=== PATIENT | female | born 1950 | race Two or more races ===

== ENCOUNTER 2017-07-30 00:56 | Emergency (ER) | payer OTHER ==
[~2017-07-30] VITALS: Ht 152.4 cm; Wt 54.4 kg
[~2017-07-30 00:56] MED LIST: CLOP75TA28 PO; IBU800T PO; LISI10TA6 PO
[2017-07-30] MEDS ORDERED: SODIUM CHLORIDE 0.9% 1,000 ML IVB ONE (01:04)
[2017-07-30] MEDS ORDERED: HYDROmorphone HCL 2 MG/ML VL IV ONE (01:15)
[2017-07-30] MEDS ORDERED: PROMETHAZINE HCL 25 MG/ML 1ML IV PRN (01:15)
[2017-07-30 01:49] LABS: Basophils # (auto) 0.1 uL; Basophils % (auto) 0.5 % (0.0-2.0); Eosinophils # (auto) 0.2 uL; Eosinophils % (auto) 1.8 % (0.0-7.0); Hemoglobin 11.7 g/dL (12.2-16.2); Lymphocytes # (auto) 1.5 uL; Lymphocytes % (auto) 12.9 % (10.0-50.0); Mean Corpuscular Hemoglobin 29.1 pg (28.0-32.0); Mean Corpuscular Hgb Conc. 32.5 g/dL (32.0-36.0); Mean Corpuscular Volume 89.5 fL (80.0-100.0); Monocytes # (auto) 0.5 uL; Monocytes % (auto) 4.3 % (0.0-12.0); Neutrophils # (auto) 9.7 uL; Neutrophils % (auto) 80.5 % (37.0-80.0); Platelet Count (auto) 376 10^3/uL (140-450); Red Blood Cells 4.03 10^6/uL (4.0-5.20); Red Cell Distribution Width 14.8 % (11.8-14.3)
[2017-07-30 02:03] LABS: INR 1.04 (0.9-1.15); Partial Thromboplastin Time 23.3 sec (22.64-33.71); Prothrombin Time 11.3 sec (9.37-12.3)
[2017-07-30 02:13] LABS: Albumin 3.7 g/dL (3.4-5.0); Bilirubin, Total 0.2 mg/dL (0.2-1.0); Calcium 8.4 mg/dL (8.5-10.1); Magnesium 2.2 mg/dL (1.6-2.6); Potassium 3.4 mmol/L (3.5-5.1); Total Protein 6.8 g/dL (6.4-8.2)
[2017-07-30] MEDS ORDERED: SODIUM CHLORIDE 0.9% 1,000 ML IV ONE (02:30)
[2017-07-30 04:00] VITALS: BP 123/78
== END 2017-07-30 04:00 | disposition home or self-care (01) ==
LOC: EDBD 00:56 → ER 01:08
DX: K52.9 Noninfective gastroenteritis and colitis, unspecified (principal); D72.829 Elevated white blood cell count, unspecified; I25.10 Atherosclerotic heart disease of native coronary artery without angina pectoris; I10 Essential (primary) hypertension; Z87.891 Personal history of nicotine dependence
CPT/HCPCS: 36415; 74176; 80053; 83690; 83735; 85025; 85610; 85730; 94761; 96361; 96374; 96375; 99285; J1170; J2550

== ENCOUNTER 2021-04-27 11:11 | Emergency (ER) | payer BC, OTHER ==
[~2021-04-27] VITALS: Ht 149.9 cm; Wt 54.4 kg
[~2021-04-27 11:11] MED LIST changes: +LISI-716 PO; -LISI10TA6 PO
[2021-04-27 11:12] VITALS: BP 141/62
[2021-04-27 12:01] LABS: INR 1.11 (0.9-1.15)
[2021-04-27 12:05] LABS: Eosinophils # (auto) 0.1 10 ^3/uL (0-0.8); Hematocrit 24.7 % (36.0-46.0); Monocytes # (auto) 0.7 10 ^3/uL (0-1.3); Nucleated Red Blood Cells % 0.1 %
[2021-04-27 12:07] LABS: Basophils # (auto) 0 10 ^3/uL (0-0.2); Basophils % (auto) 0.7 % (0.0-2.0); Eosinophils % (auto) 1.9 % (0.0-7.0); Hemoglobin 7.8 g/dL (12.2-16.2); Lymphocytes % (auto) 28.9 % (10.0-50.0); Mean Corpuscular Hemoglobin 23.9 pg (28.0-32.0); Mean Corpuscular Hgb Conc. 31.6 g/dL (32.0-36.0); Mean Corpuscular Volume 75.5 fL (80.0-100.0); Neutrophils % (auto) 58.5 % (37.0-80.0); Red Blood Cells 3.27 10^6/uL (4.0-5.20); White Blood Cell 6.8 10^3/uL (4.4-10.8)
[2021-04-27 12:10] LABS: Calcium 8.9 mg/dL (8.5-10.1); Chloride 109 mmol/L (98-107); Potassium 4.1 mmol/L (3.5-5.1); Sodium 139 mmol/L (136-145)
[2021-04-27 12:11] LABS: Red Cell Distribution Width 20.3 % (11.8-14.3)
[2021-04-27 12:18] LABS: Alanine Aminotransferase 13 U/L (13-56); Albumin 3.5 g/dL (3.4-5.0); Alkaline Phosphatase 67 U/L (45-117); Anion Gap 4 (5-15); Aspartate Aminotransferase 9 U/L (15-37); BUN/Creatinine Ratio 37.1; Bilirubin, Total 0.2 mg/dL (0.2-1.0); Blood Urea Nitrogen 26 mg/dL (7-18); Carbon Dioxide 26 mmol/L (21-32); GFR African American 107 mL/min; GFR Non-African American 88 mL/min; Glucose 88 mg/dL (74-106); Total Protein 7.1 g/dL (6.4-8.2)
[2021-04-27] MEDS ORDERED: FERROUS SULFATE 325mg EC TAB PO ONE (14:00)
[2021-04-27 14:47] LABS: Urine Bacteria NONE SEEN /hpf (None Seen); Urine Blood Negative /uL (Negative); Urine Specific Gravity 1.011 (1.001-1.035); Urine WBC 2 /hpf (0 - 5)
== END 2021-04-27 14:42 | disposition home or self-care (01) ==
LOC: ER 11:11
DX: D64.9 Anemia, unspecified (principal); R42 Dizziness and giddiness; I25.10 Atherosclerotic heart disease of native coronary artery without angina pectoris; I10 Essential (primary) hypertension; Z88.5 Allergy status to narcotic agent; Z79.899 Other long term (current) drug therapy; Z90.89 Acquired absence of other organs; Z90.710 Acquired absence of both cervix and uterus; Z90.49 Acquired absence of other specified parts of digestive tract; Z87.891 Personal history of nicotine dependence; Z89.612 Acquired absence of left leg above knee
CPT/HCPCS: 36415; 71045; 80053; 81001; 84484; 85025; 85610; 85730; 93005

== ENCOUNTER 2022-12-14 22:59 | Inpatient (IN) | payer BC ==
[~2022-12-14] VITALS: Ht 149.9 cm; Wt 59.8 kg
[~2022-12-14 22:59] MED LIST changes: -LISI-716 PO; +LISI10TA34 PO
[2022-12-14] MEDS ORDERED: IOHEXOL 350 MG/ML 100ML IJ ONE (23:39)
[2022-12-14 23:59] LABS: Basophils # (auto) 0.1 10 ^3/uL (0-0.2); Eosinophils # (auto) 0.1 10 ^3/uL (0-0.8); Eosinophils % (auto) 1.8 % (0.0-7.0); Lymphocytes # (auto) 2.1 10 ^3/uL (0.4-5.4); Monocytes # (auto) 0.6 10 ^3/uL (0-1.3)
[2022-12-15] LABS: Basophils % (auto) 1.3 % (0.0-2.0); Hematocrit 26.7 % (36.0-46.0); Hemoglobin 8.6 g/dL (12.2-16.2); Lymphocytes % (auto) 26.6 % (10.0-50.0); Mean Corpuscular Hemoglobin 25.1 pg (28.0-32.0); Mean Corpuscular Hgb Conc. 32.3 g/dL (32.0-36.0); Mean Corpuscular Volume 77.8 fL (80.0-100.0); Monocytes % (auto) 7.9 % (0.0-12.0); Neutrophils % (auto) 62.4 % (37.0-80.0); Nucleated Red Blood Cells % 0.1 %; Red Blood Cells 3.42 10^6/uL (4.0-5.20); Red Cell Distribution Width 18.5 % (11.8-14.3); White Blood Cell 7.9 10^3/uL (4.4-10.8)
[2022-12-15 00:08] LABS: INR 1.04 (0.9-1.15); Partial Thromboplastin Time 28.5 sec (24.6-33.4)
[2022-12-15 00:43] LABS: Albumin 3.5 g/dL (3.4-5.0); BUN/Creatinine Ratio 20.9 (10.0-20.0); Calcium 8.7 mg/dL (8.5-10.1); Potassium 4.2 mmol/L (3.5-5.1)
[2022-12-15 00:46] LABS: Bilirubin, Total 0.2 mg/dL (0.2-1.0); Total Protein 7.8 g/dL (6.4-8.2)
[2022-12-15] MEDS ORDERED: ACETAMINOPHEN 325 MG TAB PO ONE (04:15)
[2022-12-15] MEDS ORDERED: hydrALAZINE HCL 20 MG/ML VL IV PRN (04:30)
[2022-12-15] MEDS ORDERED: DOCUSATE SOD 100 MG CAP PO PRN (04:30)
[2022-12-15] MEDS ORDERED: DEXTROSE (50%) 50ML SYRG IV PRN (04:30)
[2022-12-15] MEDS ORDERED: ONDANSETRON HCL 4 MG/2 ML VIAL IV PRN (04:30)
[2022-12-15] MEDS ORDERED: ACETAMINOPHEN 325 MG TAB PO PRN (04:30)
[2022-12-15 05:32] LABS: Basophils # (auto) 0.1 10 ^3/uL (0-0.2); Eosinophils # (auto) 0.1 10 ^3/uL (0-0.8); Hematocrit 25.8 % (36.0-46.0); Hemoglobin 8.4 g/dL (12.2-16.2); Mean Corpuscular Hemoglobin 24.9 pg (28.0-32.0); Mean Corpuscular Hgb Conc. 32.4 g/dL (32.0-36.0); Mean Corpuscular Volume 76.8 fL (80.0-100.0); Monocytes # (auto) 0.5 10 ^3/uL (0-1.3); Red Cell Distribution Width 18.5 % (11.8-14.3)
[2022-12-15 05:34] LABS: Calcium 8.2 mg/dL (8.5-10.1)
[2022-12-15 05:39] LABS: Basophils % (auto) 1.2 % (0.0-2.0); Eosinophils % (auto) 1.9 % (0.0-7.0); Lymphocytes # (auto) 1.9 10 ^3/uL (0.4-5.4); Lymphocytes % (auto) 26.9 % (10.0-50.0); Monocytes % (auto) 7.7 % (0.0-12.0); Neutrophils # (auto) 4.3 10 ^3/uL (1.6-8.6); Neutrophils % (auto) 62.3 % (37.0-80.0); Red Blood Cells 3.35 10^6/uL (4.0-5.20); White Blood Cell 6.9 10^3/uL (4.4-10.8)
[2022-12-15 05:40] LABS: Albumin 3.6 g/dL (3.4-5.0); BUN/Creatinine Ratio 16.3 (10.0-20.0); Bilirubin, Total 0.3 mg/dL (0.2-1.0); Total Protein 7.4 g/dL (6.4-8.2)
[2022-12-15] MEDS ORDERED: SODIUM CHLORIDE 0.9% 1,000 ML IV ONE ×2 (06:15→07:30)
[2022-12-15] MEDS ORDERED: NITROGLYCERIN 0.4 MG SL TAB SL PRN (06:30)
[2022-12-15] MEDS: InsuLIN REG 1unit/0.01ml Soln (100units/ml) SC SCH ×4 (07:00→22:00)
[2022-12-15] MEDS: ACCU-CHEK COMFORT CURVE STRIP VI SCH ×4 (07:22→22:00)
[2022-12-15] MEDS: SODIUM CHLORIDE 0.9% 1,000 ML IV SCH ×2 (07:35→21:10)
[2022-12-15] MEDS: FAMOTIDINE (10MG/ML) 2ML VL IV SCH ×2 (10:51→22:00)
[2022-12-15] MEDS: CLOPIDOGREL BISULFATE 75 MG TAB PO SCH (10:51)
[2022-12-15 11:56] LABS: Urine Bacteria NONE SEEN /hpf (None Seen); Urine Blood Negative /uL (Negative); Urine WBC 2 /hpf (0 - 5)
[2022-12-15] MEDS ORDERED: HYDROcodone-ACET 5/325MG TAB PO ONE (23:15)
[2022-12-15 23:45] VITALS: BP 145/65
[2022-12-16] MEDS ORDERED: ATOR40TA52 PO (00:32)
[2022-12-16] MEDS ORDERED: ASPI-628 PO (00:32)
[2022-12-16] MEDS ORDERED: HYDR-4069 PO (00:32)
[2022-12-16] MEDS ORDERED: METF-370 PO (00:32)
[2022-12-16] MEDS ORDERED: METO25TA93 PO (00:32)
[2022-12-16] MEDS ORDERED: CLOP75TA70 PO (00:32)
[2022-12-16] MEDS ORDERED: PREG300C49 PO (00:32)
[2022-12-16 05:00] VITALS: BP 126/59
[2022-12-16] MEDS: InsuLIN REG 1unit/0.01ml Soln (100units/ml) SC SCH ×3 (06:06→16:48)
[2022-12-16] MEDS: ACCU-CHEK COMFORT CURVE STRIP VI SCH ×3 (06:06→16:48)
[2022-12-16 06:12] LABS: Basophils # (auto) 0.1 10 ^3/uL (0-0.2); Basophils % (auto) 1.5 % (0.0-2.0); Eosinophils # (auto) 0.2 10 ^3/uL (0-0.8); Eosinophils % (auto) 2.4 % (0.0-7.0); Hematocrit 24.5 % (36.0-46.0); Hemoglobin 7.9 g/dL (12.2-16.2); Lymphocytes # (auto) 1.5 10 ^3/uL (0.4-5.4); Lymphocytes % (auto) 22.2 % (10.0-50.0); Mean Corpuscular Hemoglobin 24.9 pg (28.0-32.0); Mean Corpuscular Hgb Conc. 32.1 g/dL (32.0-36.0); Mean Corpuscular Volume 77.7 fL (80.0-100.0); Monocytes # (auto) 0.6 10 ^3/uL (0-1.3); Monocytes % (auto) 8.8 % (0.0-12.0); Neutrophils # (auto) 4.3 10 ^3/uL (1.6-8.6); Neutrophils % (auto) 65.1 % (37.0-80.0); Nucleated Red Blood Cells % 0.1 %; Red Blood Cells 3.15 10^6/uL (4.0-5.20); Red Cell Distribution Width 18.4 % (11.8-14.3); White Blood Cell 6.6 10^3/uL (4.4-10.8)
[2022-12-16 06:29] LABS: Albumin 3.4 g/dL (3.4-5.0); BUN/Creatinine Ratio 16.2 (10.0-20.0); Bilirubin, Total 0.2 mg/dL (0.2-1.0); Total Protein 7.1 g/dL (6.4-8.2)
[2022-12-16 08:00] VITALS: BP 119/98
[2022-12-16 08:10] VITALS: BP 119/98
[2022-12-16] MEDS ORDERED: HYDROcodone-ACET 5/325MG TAB PO PRN (09:00)
[2022-12-16] MEDS: CLOPIDOGREL BISULFATE 75 MG TAB PO SCH (09:43)
[2022-12-16] MEDS: FAMOTIDINE (10MG/ML) 2ML VL IV SCH (09:43)
[2022-12-16 12:10] VITALS: BP 156/82
[2022-12-16] MEDS: SODIUM CHLORIDE 0.9% 1,000 ML IV SCH (13:41)
[2022-12-16] MEDS ORDERED: PREGABALIN CAPSULE 75 MG CAP PO SCH (14:00)
[2022-12-16 16:05] VITALS: BP 145/85
== END 2022-12-16 20:55 | disposition home health service (06) | DRG 69 ==
LOC: ER 22:59 → TELE 12-15 06:27 → TELE-WESTW 12-15 22:16
PROVIDERS: ADMIT Nurse Practitioner Family; ATTEND Internal Medicine
DX: G45.9 Transient cerebral ischemic attack, unspecified (principal); E87.1 Hypo-osmolality and hyponatremia; D64.9 Anemia, unspecified; I10 Essential (primary) hypertension; I25.10 Atherosclerotic heart disease of native coronary artery without angina pectoris; E78.00 Pure hypercholesterolemia, unspecified; I73.9 Peripheral vascular disease, unspecified; E11.40 Type 2 diabetes mellitus with diabetic neuropathy, unspecified; Z86.73 Personal history of transient ischemic attack (TIA), and cerebral infarction without residual deficits; Z89.612 Acquired absence of left leg above knee; Z87.891 Personal history of nicotine dependence; Z90.710 Acquired absence of both cervix and uterus; Z88.5 Allergy status to narcotic agent
CPT/HCPCS: 36415; 70551; 80053; 81001; 82962; 84484; 85025; 85610; 85730; 86850; 86900; 86901; 93005; 93306; G0378; J3490

== ENCOUNTER 2022-12-20 12:17 | Observation (INO) | payer BC ==
[~2022-12-20] VITALS: Ht 152.4 cm; Wt 56.8 kg
[~2022-12-20 12:17] MED LIST changes: +ASPI-628 PO; +ATOR40TA52 PO; +CLOP75TA70 PO; +HYDR-4069 PO; +METF-370 PO; +METO25TA93 PO; +PREG300C49 PO
[2022-12-20 13:52] LABS: Basophils # (auto) 0.1 10 ^3/uL (0-0.2); Eosinophils # (auto) 0.1 10 ^3/uL (0-0.8); Hematocrit 24.2 % (36.0-46.0); Hemoglobin 7.6 g/dL (12.2-16.2); Lymphocytes # (auto) 1.9 10 ^3/uL (0.4-5.4); Mean Corpuscular Hemoglobin 24.5 pg (28.0-32.0); Monocytes # (auto) 0.6 10 ^3/uL (0-1.3); White Blood Cell 5.4 10^3/uL (4.4-10.8)
[2022-12-20 13:54] LABS: Basophils % (auto) 1.5 % (0.0-2.0); Eosinophils % (auto) 2.1 % (0.0-7.0); Lymphocytes % (auto) 35.6 % (10.0-50.0); Mean Corpuscular Hgb Conc. 31.6 g/dL (32.0-36.0); Mean Corpuscular Volume 77.5 fL (80.0-100.0); Monocytes % (auto) 10.5 % (0.0-12.0); Neutrophils # (auto) 2.7 10 ^3/uL (1.6-8.6); Neutrophils % (auto) 50.3 % (37.0-80.0); Nucleated Red Blood Cells % 0.1 %; Red Blood Cells 3.12 10^6/uL (4.0-5.20); Red Cell Distribution Width 18.7 % (11.8-14.3)
[2022-12-20 14:10] LABS: INR 1.05 (0.9-1.15); Partial Thromboplastin Time 27.1 sec (24.6-33.4)
[2022-12-20 14:25] LABS: Albumin 3.5 g/dL (3.4-5.0); Calcium 8.3 mg/dL (8.5-10.1); Magnesium 2.7 mg/dL (1.6-2.6); Potassium 4.5 mmol/L (3.5-5.1)
[2022-12-20 14:29] LABS: BUN/Creatinine Ratio 17.6 (10.0-20.0); Bilirubin, Total 0.2 mg/dL (0.2-1.0); Total Protein 6.6 g/dL (6.4-8.2)
[2022-12-20] MEDS ORDERED: HYDROcodone-ACET 5/325MG TAB PO PRN (15:30)
[2022-12-20] MEDS ORDERED: ONDANSETRON HCL 4 MG/2 ML VIAL IV PRN (15:30)
[2022-12-20] MEDS ORDERED: ACETAMINOPHEN 325 MG TAB PO PRN (15:30)
[2022-12-20] MEDS ORDERED: NITROGLYCERIN 0.4 MG SL TAB SL PRN (15:30)
[2022-12-20] MEDS ORDERED: MORPHINE SULFATE INJ 2 MG/ml SYRG IV PRN ×2 (15:30)
[2022-12-20 16:03] LABS: % Iron Saturation 3.9 % (15-50)
[2022-12-20 16:56] LABS: Urine WBC None Seen /hpf (0 - 5)
[2022-12-20 17:24] LABS: Urine Bacteria NONE SEEN /hpf (None Seen); Urine Blood Negative /uL (Negative); Urine Specific Gravity 1.006 (1.001-1.035)
[2022-12-21] VITALS (17 sets, daily range): BP systolic 118–154; BP diastolic 53–79
[2022-12-21 12:48] LABS: Basophils # (auto) 0.1 10 ^3/uL (0-0.2); Basophils % (auto) 1.2 % (0.0-2.0); Eosinophils # (auto) 0.1 10 ^3/uL (0-0.8); Eosinophils % (auto) 2.4 % (0.0-7.0); Hemoglobin 11.8 g/dL (12.2-16.2); Lymphocytes # (auto) 1.8 10 ^3/uL (0.4-5.4); Lymphocytes % (auto) 32.3 % (10.0-50.0); Mean Corpuscular Hemoglobin 27.2 pg (28.0-32.0); Mean Corpuscular Hgb Conc. 32.7 g/dL (32.0-36.0); Mean Corpuscular Volume 83.1 fL (80.0-100.0); Monocytes # (auto) 0.5 10 ^3/uL (0-1.3); Monocytes % (auto) 9.9 % (0.0-12.0); Neutrophils % (auto) 54.2 % (37.0-80.0); Nucleated Red Blood Cells % 0.8 %; Red Blood Cells 4.33 10^6/uL (4.0-5.20); Red Cell Distribution Width 20.1 % (11.8-14.3); White Blood Cell 5.5 10^3/uL (4.4-10.8)
== END 2022-12-21 17:00 | disposition home or self-care (01) ==
LOC: ER 12:17 → TELE 15:25 → TELE-EAST 12-21 01:31
PROVIDERS: ADMIT Internal Medicine; ATTEND Internal Medicine
DX: D64.9 Anemia, unspecified (principal); R53.1 Weakness; R53.83 Other fatigue; I10 Essential (primary) hypertension; I25.10 Atherosclerotic heart disease of native coronary artery without angina pectoris; E11.9 Type 2 diabetes mellitus without complications; G62.9 Polyneuropathy, unspecified; G45.9 Transient cerebral ischemic attack, unspecified; D84.9 Immunodeficiency, unspecified; E78.5 Hyperlipidemia, unspecified; Z86.73 Personal history of transient ischemic attack (TIA), and cerebral infarction without residual deficits; Z87.891 Personal history of nicotine dependence; Z90.710 Acquired absence of both cervix and uterus; Z79.899 Other long term (current) drug therapy; Z98.890 Other specified postprocedural states; Z90.49 Acquired absence of other specified parts of digestive tract
CPT/HCPCS: 36415; 36430; 70450; 71045; 80053; 81001; 82962; 83540; 83550; 83735; 83880; 84484; 85025; 85045; 85610; 85730; 86850; 86900; 86901; 86920; 93005; 96374; 99285; G0378; J2405; P9016

== ENCOUNTER 2024-09-21 12:38 | Inpatient (IN) | payer BC, MEDICAID ==
[~2024-09-21] VITALS: Ht 149.9 cm; Wt 60.4 kg
[~2024-09-21 12:38] MED LIST changes: -IBU800T PO; -PREG300C49 PO; +[UNRECOGNIZED DRUG - CODE] PO
--- NOTE | 2024-09-21 13:13 | ED.PDOC ---
GI ASSESSMENT HPI Comments 73 year old female accompanied by presents to the ED with chief complaint of abdominal pain. Patient reports that she has been experiencing 10/10 diffuse abdominal pain with associated radiation of pain to her back, dysuria, nausea, and vomiting for the past week. Patient denies any diarrhea, hematemesis, melena, rectal bleeding, fever, chills, hematuria, or dizziness. Time Seen by MD: 13:07 Primary Care Provider: ROD Garcia Notes: Nurses Notes, Medications, Allergies Allergies: Uncoded Allergies: ANESTHESIA (Allergy, Mild, 05/14/11) Home Meds Reported Medications Atorvastatin Calcium (ATORVASTATIN CALCIUM) 40 Mg Tab, 1 TAB PO DAILY 12/16/22 Metformin Hydrochloride (Metformin Hcl) 500 Mg Tab, 1 TAB PO BID 12/16/22 Hydrocodone-Acetaminophen (Hydrocodone/Acetaminophen 7.5-325 mg) 1 Tab Tab, 1 TAB PO QID PRN for PAIN SCALE 7 THRU 10 12/16/22 Clopidogrel Bisulfate (CLOPIDOGREL) 75 Mg Tab, 1 TAB PO DAILY 12/16/22 Aspirin (Aspirin Adult Low Dose) 81 Mg Tab, 1 TAB PO DAILY 12/16/22 Pregabalin (Pregabalin) 300 Mg Cap, 2 CAP PO TID 12/16/22 Metoprolol Succinate (Metoprolol Succinate Er) 25 Mg Tab, 1 TAB PO 12/16/22 Clopidogrel Bisulfate (Plavix) 75 Mg Tab, 75 MG PO DAILY 05/14/11 Lisinopril (Lisinopril) 10 Mg Tab, 10 MG PO DAILY 05/14/11 Information Source: Patient, Spouse Mode of Arrival: Wheelchair Timing: Weeks Duration: Since onset Prehospital treatment: None Quality: Sharp Vomitus: Watery Stool: Normal, Green, Yellow Severity: Moderate Recent: None Recent Hx of: None Pain Location: Diffuse Modifying Factors: Nothing Associated sign and symptoms: Nausea, Vomiting, Abdominal Pain Past Medical History PAST MEDICAL HISTORY: Anemia, CAD, CKF, DM, High Lipids, HTN, AL, TIA Surgical History: Appendectomy, AKA, Cholecystectomy, Hysterectomy, Tonsillectomy Surgical History (Other): Cardiac stent, partial thyroidectomy, left eye cataract surgery [facility] [place] [facility] History: Denies all [facility] [place] Hx Family History Family History: Reviewed,noncontributory to illness, Family hx of heart cecilia Social History Smoker: Quit Less Than 1 Year Alcohol: Denies ETOH Use Drugs: Denies Drug Use Lives In: Home Constitutional: denies: chills, diaphoresis, fatigue, fever, malaise, sweats, weakness, others EENTM: denies: blurred vision, double vision, ear bleeding, ear discharge, ear drainage, ear pain, ear ringing, eye pain, eye redness, hearing loss, mouth pain, mouth swelling, nasal discharge, nose bleeding, nose congestion, nose pain, photophobia, tearing, throat pain, throat swelling, voice changes, others Respiratory: denies: cough, hemoptysis, orthopnea, SOB at rest, shortness of breath, SOB with excertion, stridor, wheezing, others Cardiovascular: denies: chest pain, dizzy spells, diaphoresis, Dyspnea on exertion, edema, irregular heart beat, left arm pain, lightheadedness, palpitations, PND, syncope, others Gastrointestinal: reports: abdominal pain, nausea, vomiting; denies: abdomen distended, blood streaked bowels, constipated, diarrhea, dysphagia, difficulty swallowing, hematemesis, melena, poor appetite, poor fluid intake, rectal bleeding, rectal pain, others Genitourinary: reports: dysuria; denies: abnormal vagina bleeding, burning, dyspareunia, flank pain, frequency, hematuria, incontinence, pain, , vagina discharge, urgency, others Neurological: denies: dizziness, fainting, headache, left sided numbness, left sided weakness, numbness, paresthesia, pre-existing deficit, right sided numbness, right sided weakness, seizure, speech problems, tingling, tremors, weakness, others Musculoskeletal: denies: back pain, gout, joint pain, joint swelling, muscle pain, muscle stiffness, neck pain, others Integumetry: denies: bruises, change in color, change in hair/nails, dryness, laceration, lesions, lumps, rash, wounds, others Allergic/Immunocompromised: denies: Difficulty Healing, Frequent Infections, Hives, Itching, others Hematologic/Lymphatic: denies: anemia, blood clots, easy bleeding, easy bruising, swollen glands, others Endocrine: denies: excessive hunger, excessive sweating, excessive thirst, excessive urination, flushing, intolerance to cold, intolerance to heat, unexplained weight gain, unexplained weight loss, others Psychiatric: denies: anxiety, bipolar disorder, depression, hopeless, panic disorder, schizophrenia, sleepless, suicidal, others All Other Systems: Reviewed and Negative Physical Exam General Appearance: Moderate Distress HEENT: Normal ENT Inspection, PERRL/EOMI Neck: Full Range of Motion, Non-Tender, Normal, Normal Inspection Respiratory: Chest Non-Tender, Lungs Clear, No Accessory Muscle Use, No Respiratory Distress, Normal Breath Sounds Cardiovascular: No Edema, No JVD, No Murmur, No Gallop, Normal Peripheral Pulses, Regular Rate/Rhythm Breast Exam: Deferred Gastrointestinal: Diffuse, No Organomegaly, No Pulsatile Mass, Normal Bowel Sounds, Soft, Tenderness Genitalia: Deferred Pelvic: Deferred Rectal: Deferred Extremities: No calf tenderness, Normal capillary refill, Normal inspection, Normal range of motion, Non-tender, No pedal edema Musculoskeletal : Location: Left Extremity Location: Other (Left AKA) Neurologic: Alert, 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 Was a procedure done?: No GI differential Dx Differential Diagnosis: Appendicitis, Constipation, Diverticular disease, Gastritis/PUD, Gastroenteritis, Pancreatitis, UTI, Electrolyte Imbalance, Food Poisoning X-Ray, Labs, Meds, VS Vital Signs Date Time Temp Pulse Resp B/P (MAP) Pulse Ox O2 Delivery O2 Flow Rate FiO2 09/21/24 15:33 82 16 116/72 09/21/24 14:37 112 16 128/64 09/21/24 14:30 112 18 97 Room Air* 0 21 09/21/24 14:28 98.6 112 17 128/64 (85) 93 98.6 09/21/24 14:28 112 17 93 Room Air 09/21/24 13:13 98.2 108 18 135/57 (83) 94 Lab Test 09/21/24 13:37 09/21/24 12:05 Range/Units White Blood Count 25.8 H 4.4-10.8 10^3/uL Red Blood Count 3.41 L 4.0-5.20 10^6/uL Hemoglobin 7.5 L 12.2-16.2 g/dL Hematocrit 26.3 L 36.0-46.0 % Mean Corpuscular Volume 77.3 L 80.0-100.0 fL Mean Corpuscular Hemoglobin 22.2 L 28.0-32.0 pg Mean Corpuscular Hemoglobin Concent 28.7 L 32.0-36.0 g/dL Red Cell Distribution Width 19.2 H 11.8-14.3 % Platelet Count 675 H 140-450 10^3/uL Mean Platelet Volume 7.9 6.9-10.8 fL Neutrophils (%) (Auto) 37.0-80.0 % Lymphocytes (%) (Auto) 10.0-50.0 % Monocytes (%) (Auto) 0.0-12.0 % Basophils (%) (Auto) 0.0-2.0 % Neutrophils # (Auto) 1.6-8.6 10 ^3/uL Lymphocytes # (Auto) 0.4-5.4 10 ^3/uL Monocytes # (Auto) 0-1.3 10 ^3/uL Differential Total Cells Counted 100.0 100 Neutrophils % (Manual) 88 H 37.0-80.0 Band Neutrophils % (Manual) 6 Lymphocytes % (Manual) 4 L 10.0-50.0 Monocytes % (Manual) 0 0-12 Eosinophils % (Manual) 0 0-7 Basophils % (Manual) 0 0.0-2.0 Metamyelocytes % (manual) 2 Myelocytes % (Manual) 0 Promyelocytes % (Manual) 0 Blast Cells % (Manual) 0 Reactive Lymphocytes 0 Platelet Estimate Increased Hypochromasia (manual) Moderate Microcytosis Slight Sodium Level 139 136-145 mmol/L Potassium Level 5.3 H 3.5-5.1 mmol/L Chloride Level 109 H 98-107 mmol/L Carbon Dioxide Level 15 L 20-31 mmol/L Anion Gap 15 5-15 Blood Urea Nitrogen 47 H 9-23 mg/dL Creatinine 2.63 H 0.550-1.02 mg/dL Glomerular Filtration Rate Calc 19 >90 mL/min BUN/Creatinine Ratio 17.9 10.0-20.0 Serum Glucose 158 H 74-106 mg/dL Calcium Level 9.5 8.7-10.4 mg/dL Total Bilirubin < 0.2 L 0.2-1.0 mg/dL Aspartate Amino Transferase (AST) 16 13-40 U/L Alanine Aminotransferase (ALT) 9 7-40 U/L Alkaline Phosphatase 103 46-116 U/L Total Protein 7.6 5.7-8.2 g/dL Albumin 4.5 3.2-4.8 g/dL Lipase 31 12-53 U/L Urine Color Light-yellow Yellow Urine Clarity Clear Clear Urine pH 5.5 5.0-9.0 Urine Specific [place] 1.018 1.001-1.035 Urine Protein Trace H Negative Urine Ketones Negative Negative Urine Blood Negative Negative /uL Urine Nitrite Negative Negative Urine Bilirubin Negative Negative Urine Urobilinogen Normal Negative mg/dL Urine Leukocyte Esterase Negative Negative /uL Urine RBC 1 0 - 4 /hpf Urine Microscopic WBC 16 H 0-5 /HPF Urine Squamous Epithelial Cells Few <5 /hpf Urine Transitional Epithelial Cells Few <2 /hpf Urine Bacteria None seen None Seen /hpf Urine Hyaline Casts Few 0 - 2 /lpf Urine Mucus Few None Seen Urine Glucose Normal Normal mg/dL Current Medications Medications (Trade) Dose Ordered Sig/Ruth Route Start Time Stop Time Status Last Admin Ondansetron HCl (Zofran) 4 mg ONCE ONCE IV 09/21/24 13:15 09/21/24 13:16 DC 09/21/24 14:36 Hydromorphone HCl (Dilaudid Injection) 0.5 mg ONCE ONCE IV 09/21/24 14:30 09/21/24 14:31 DC 09/21/24 14:37 CT Abd/Pel indicates: 1. There are mildly prominent fluid-filled small bowel loops with no obvious transition point. The large bowel loops demonstrate normal caliber. Findings May relate to mild ileus. 2. Distal colon diverticulosis without evidence of acute diverticulitis. 3. Cholecystectomy and hysterectomy. IV Hep-Lock was established. The patient was given Dilaudid 0.5 mg IV push for the pain The patient was given Zofran 4 mg IV push for the nausea We did review the CT scan and there is a concern that this also could be an early small-bowel obstruction The chemistry panel shows a degree of renal failure with a potassium of 5.3 The BUN is 47 and the creatinine is 2.63 The CBC shows an elevated white blood cell count of 25.8 The patient was severely anemic with a hemoglobin of 7.5 and hematocrit 26.3 At this time, the patient was being admitted to the hospitalist We did speak with the hospitalist and we also spoke with the patient and family Images Reviewed?: Images reviewed and evaluated by me Time of 1ST Reevaluation: 16:21 Reevaluation 1ST: Unchanged Patient Education/Counseling: Diagnosis, Treatment, Prognosis Family Education/Counseling: Diagnosis, Treatment, Prognosis Additional Information -Reviewed patient's previous visit(s): - The following tests were ordered, and results were reviewed by me: - Additional information was gathered from interviewing the following independent Historian: - I reviewed and agreed with the following test results read by other provider: - I discussed treatments and results with medical personnel and: patient Comprehensive systems review obtained and negative except for what is stated in the HPI. Departure 1 Departure Time of Disposition: 16:22 Impression: Primary Impression: Intractable abdominal pain Additional Impressions: Acute hyperkalemia Acute renal failure Qualified Codes: N17.1 - Acute kidney failure with acute cortical necrosis Disposition: ADMITTED INPATIENT Admit to: Tele Condition: Fair Critical Care Note Critical Care Time?: Yes (45 min-critical care time only) Stability Stability form required: Yes Unstable for transfer: Telemetry monitoring (Telemetry monitoring required), ED Physician Assesment (Clinical assesment) Heart Score Heart Score: Heart Score Response (Comments) Value History N/A 0 EKG N/A 0 Age N/A 0 Risk Factors N/A 0 Troponin N/A 0 Total 0 I personally scribed for ALVINO RM MD ([email or web address]) on 09/21/24 at 13:13. Electronically submitted by Kike Dick ([email or web address]). I personally scribed for ALVINO RM MD ([email or web address]) on 09/21/24 at 14:21. Electronically submitted by Kike Dick ([email or web address]). ALVINO RM MD Sep 21, 2024 13:13
--- NOTE | 2024-09-21 13:41 | DVH ---
CT ABDOMEN AND PELVIS WITHOUT CONTRAST CLINICAL HISTORY: pain TECHNIQUE: Multiple contiguous axial images of the abdomen and pelvis without intravenous contrast. T he images were reformatted degenerate coronal and sagittal reconstructions. All CT scans at this medical facility are performed using dose modulation techniques as appropriate t o a performed exam including the following:Automated exposure control was utilized; adjustment of the MA and/or KV according to patient size; and use of iterative reconstruction technique. Radiation Dose Information: CT Dose: CTDI volume is 6.46 mGy. Dose-length product is 338.42 mGy*cm Comparison: None FINDINGS: Evaluation of the abdomen and pelvis is limited without intravenous contrast. Gallbladder is surgically absent. There are few scattered small hepatic cysts and dystrophic calcifi cations. The pancreas, kidneys, adrenal glands, and spleen appear within normal limits. There is no gross evidence of abdominal lymphadenopathy. There is no free fluid or free air. The stomach grossly appears unremarkable. There are mildly prominent fluid-filled small bowel loops measuring up to 2.6 cm. There is no obvious transition point. The large bowel loops are nondilated in contain air intermixed with stool. There are diverticula in the distal colon without evidence of ac tejon diverticulitis. The appendix is not seen in the right lower quadrant abdomen. There are no second jose signs of acute appendicitis. There are calcified atherosclerotic changes in the abdominal aorta. The IVC appears within normal li mits. The bladder appears unremarkable for the degree of distention. Uterus is surgically absent.. There i s no gross evidence of a pelvic mass. There is no free fluid collection. Scarring versus atelectasis in the posterior lung bases. There is no acute osseous abnormality. IMPRESSION: 1. There are mildly prominent fluid-filled small bowel loops with no obvious transition point. The l arge bowel loops demonstrate normal caliber. Findings May relate to mild ileus. 2. Distal colon diverticulosis without evidence of acute diverticulitis. 3. Cholecystectomy and hysterectomy. HS:Y
[2024-09-21 13:51] LABS: Mean Corpuscular Hgb Conc. 28.7 g/dL (32.0-36.0)
[2024-09-21 13:53] LABS: Hematocrit 26.3 % (36.0-46.0); Hemoglobin 7.5 g/dL (12.2-16.2); Mean Corpuscular Hemoglobin 22.2 pg (28.0-32.0); Mean Corpuscular Volume 77.3 fL (80.0-100.0); Platelet Count (auto) 675 10^3/uL (140-450); Red Blood Cells 3.41 10^6/uL (4.0-5.20); Red Cell Distribution Width 19.2 % (11.8-14.3); White Blood Cell 25.8 10^3/uL (4.4-10.8)
[2024-09-21 13:56] LABS: Urine Bacteria None Seen /hpf (None Seen)
[2024-09-21 13:58] LABS: Basophils % (manual) 0 (0.0-2.0); Blast Cells 0; Eosinophils % (manual) 0 (0-7); Monocytes % (manual) 0 (0-12); Myelocytes % 0; Promyelocytes % 0; Reactive Lymphocytes 0
[2024-09-21 14:03] LABS: Urine Blood Negative /uL (Negative); Urine Clarity Clear (Clear); Urine Color Light-Yellow (Yellow); Urine Hyaline Cast FEW /lpf (0 - 2); Urine Mucus FEW (None Seen); Urine Protein, UAD TRACE (Negative); Urine Specific Gravity 1.018 (1.001-1.035); Urine Squamous Epithelial Cell FEW /hpf (<5); Urine Urobilinogen Normal (Negative); Urine WBC 16 /HPF (0-5); Urine pH 5.5 (5.0-9.0)
[2024-09-21 14:08] LABS: Albumin 4.5 g/dL (3.2-4.8); Alkaline Phosphatase 103 U/L (46-116); Anion Gap 15 (5-15); Aspartate Aminotransferase 16 U/L (13-40); BUN/Creatinine Ratio 17.9 (10.0-20.0); Calcium 9.5 mg/dL (8.7-10.4); Lipase 31 U/L (12-53); Sodium 139 mmol/L (136-145); Total Protein 7.6 g/dL (5.7-8.2)
[2024-09-21 14:10] LABS: Band Neutrophils % (manual) 6; Lymphocytes % (manual) 4 (10.0-50.0); Metamyelocytes % 2; Platelet Estimate Increased
[2024-09-21 14:11] LABS: Alanine Aminotransferase 9 U/L (7-40); Bilirubin, Total < 0.2 mg/dL (0.2-1.0); Blood Urea Nitrogen 47 mg/dL (9-23); Carbon Dioxide 15 mmol/L (20-31); Chloride 109 mmol/L (98-107); Glucose 158 mg/dL (74-106); Hypochromia Moderate; Potassium 5.3 mmol/L (3.5-5.1)
[2024-09-21 14:30] VITALS: PULSE 112; RESP 18; O2SAT 97
[2024-09-21] MEDS: ONDANSETRON HCL 4 MG/2 ML VIAL IV ONE (14:36)
[2024-09-21] MEDS: HYDROmorphone HCL 2 MG/ML VL/or syr IV ONE (14:37)
[2024-09-21] MEDS ORDERED: MORPHINE SULFATE INJ 2 MG/ml SYRG IV PRN (17:00)
[2024-09-21] MEDS: InsuLIN REG 1unit/0.01ml Soln (100units/ml) SC SCH (17:00)
[2024-09-21] MEDS ORDERED: NITROGLYCERIN 0.4 MG SL TAB SL PRN (17:00)
[2024-09-21] MEDS: ACCU-CHEK COMFORT CURVE STRIP VI SCH (17:00)
[2024-09-21] MEDS ORDERED: DEXTROSE (50%) 50ML SYRG IV PRN (17:00)
[2024-09-21] MEDS: ONDANSETRON HCL 4 MG/2 ML VIAL IV PRN (17:38)
[2024-09-21] MEDS: MORPHINE SULFATE INJ 2 MG/ml SYRG IV PRN ×2 (17:40→17:47)
--- NOTE | 2024-09-21 17:56 | DVHHP2 ---
History of Present Illness Reason for Visit: Abdominal discomfort History of Present Illness 73 year old female accompanied by presents to the ED with chief complaint of abdominal pain. Patient reports that she has been experiencing 10/10 diffuse abdominal pain with associated radiation of pain to her back, dysuria, nausea, and vomiting for the past week. Patient denies any diarrhea, hematemesis, melena, rectal bleeding, fever, chills, hematuria, or dizziness. Apparently she had diarrhea 5-6 days ago. However currently no diarrhea. No hematemesis or hematochezia. No fevers chills or sweats. Other review of systems reviewed normal. In the ER patient is evaluated noted to be anemic with a hemoglobin of 7.6. [place] [id number]. Patient is also noted to be in renal failure with elevated BUN creatinine. Because of these abnormalities with the her complaints and CT scan findings she is being admitted to the hospital for further evaluation management. Past Medical History Diabetes mellitus type 2, hypertension, hyperlipidemia, chronic kidney disease, anemia of chronic disease Past Surgical History Appendectomy, hysterectomy and cholecystectomy as well as a left above-knee amputation Smoke: No ALCOHOL: rare Lives: with Family Review of Systems Review of Systems No fevers chills or sweats. Patient does have some nausea and abdominal pain. No vomiting. No hematochezia or hematemesis. No diarrhea. No recent travel. Other review of systems reviewed normal. No weight loss. Normal appetite. Allergies: Uncoded Allergies: ANESTHESIA (Allergy, Mild, 05/14/11) Medications Current Medications Medications Dose Ordered Sig/Ruth Route Start Time Stop Time Status Last Admin Dose Admin Patient Own Medication 1 tab DAILY PO 09/22/24 10:00 UNV Metoprolol Succinate 25 mg DAILY PO 09/22/24 10:00 Nitroglycerin 0.4 mg Q5MINP PRN SL 09/21/24 17:00 Morphine Sulfate 2 mg Q30M PRN IV 09/21/24 17:00 Sodium Chloride 1,000 ml @ 75 mls/hr [id number] IV 09/21/24 17:00 Ondansetron HCl 4 mg Q4HPRN PRN IV 09/21/24 17:00 09/21/24 17:38 4 MG Morphine Sulfate 1 mg Q3HP PRN IV 09/21/24 17:00 Morphine Sulfate 2 mg Q3HPRN PRN IV 09/21/24 17:00 09/21/24 17:47 2 MG Famotidine 20 mg Q12HR IV 09/21/24 22:00 UNV Piperacillin Sod/ Tazobactam Sod 100 ml @ 25 mls/hr Q8HR IV 09/21/24 22:00 UNV Diagnostic Test (Pha) 1 strip ACHS 09/21/24 17:00 09/21/24 17:00 1 STRIP Insulin Human Regular ACHS SC 09/21/24 17:00 Dextrose 50 ml UD PRN IV 09/21/24 17:00 Metoclopramide HCl 5 mg Q6HR IV 09/21/24 18:00 UNV Exam Vital Signs Vital Signs Date Time Temp Pulse Resp B/P (MAP) Pulse Ox O2 Delivery O2 Flow Rate FiO2 09/21/24 17:47 110 18 113/62 09/21/24 17:07 98.0 94 98.0 09/21/24 14:30 Room Air* 0 21 Exam Elderly female pleasant comfortable sitting in the chair. Alert awake oriented x3. HEENT neck supple no JVD pupils equal round react to light. Heart regular rate and rhythm S1-S2 without murmurs. Lungs fair air movement chest tube will expansion. No rales or wheezing. Abdomen is soft. Mild tenderness nonspecific to palpation without any rebound or guarding. Positive active bowel sounds. No organomegaly. Extremities patient has a left above-knee amputation. Right lower extremity positive distal pedal pulses. No edema noted. Labs/Xrays Labs Test 09/21/24 17:35 09/21/24 13:37 09/21/24 12:05 Range/Units POC Glucose 123 H 70-106 mg/dl White Blood Count 25.8 H 4.4-10.8 10^3/uL Red Blood Count 3.41 L 4.0-5.20 10^6/uL Hemoglobin 7.5 L 12.2-16.2 g/dL Hematocrit 26.3 L 36.0-46.0 % Mean Corpuscular Volume 77.3 L 80.0-100.0 fL Mean Corpuscular Hemoglobin 22.2 L 28.0-32.0 pg Mean Corpuscular Hemoglobin Concent 28.7 L 32.0-36.0 g/dL Red Cell Distribution Width 19.2 H 11.8-14.3 % Platelet Count 675 H 140-450 10^3/uL Mean Platelet Volume 7.9 6.9-10.8 fL Neutrophils (%) (Auto) 37.0-80.0 % Lymphocytes (%) (Auto) 10.0-50.0 % Monocytes (%) (Auto) 0.0-12.0 % Basophils (%) (Auto) 0.0-2.0 % Neutrophils # (Auto) 1.6-8.6 10 ^3/uL Lymphocytes # (Auto) 0.4-5.4 10 ^3/uL Monocytes # (Auto) 0-1.3 10 ^3/uL Differential Total Cells Counted 100.0 100 Neutrophils % (Manual) 88 H 37.0-80.0 Band Neutrophils % (Manual) 6 Lymphocytes % (Manual) 4 L 10.0-50.0 Monocytes % (Manual) 0 0-12 Eosinophils % (Manual) 0 0-7 Basophils % (Manual) 0 0.0-2.0 Metamyelocytes % (manual) 2 Myelocytes % (Manual) 0 Promyelocytes % (Manual) 0 Blast Cells % (Manual) 0 Reactive Lymphocytes 0 Platelet Estimate Increased Hypochromasia (manual) Moderate Microcytosis Slight Sodium Level 139 136-145 mmol/L Potassium Level 5.3 H 3.5-5.1 mmol/L Chloride Level 109 H 98-107 mmol/L Carbon Dioxide Level 15 L 20-31 mmol/L Anion Gap 15 5-15 Blood Urea Nitrogen 47 H 9-23 mg/dL Creatinine 2.63 H 0.550-1.02 mg/dL Glomerular Filtration Rate Calc 19 >90 mL/min BUN/Creatinine Ratio 17.9 10.0-20.0 Serum Glucose 158 H 74-106 mg/dL Calcium Level 9.5 8.7-10.4 mg/dL Total Bilirubin < 0.2 L 0.2-1.0 mg/dL Aspartate Amino Transferase (AST) 16 13-40 U/L Alanine Aminotransferase (ALT) 9 7-40 U/L Alkaline Phosphatase 103 46-116 U/L Total Protein 7.6 5.7-8.2 g/dL Albumin 4.5 3.2-4.8 g/dL Lipase 31 12-53 U/L Urine Color Light-yellow Yellow Urine Clarity Clear Clear Urine pH 5.5 5.0-9.0 Urine Specific [place] 1.018 1.001-1.035 Urine Protein Trace H Negative Urine Ketones Negative Negative Urine Blood Negative Negative /uL Urine Nitrite Negative Negative Urine Bilirubin Negative Negative Urine Urobilinogen Normal Negative mg/dL Urine Leukocyte Esterase Negative Negative /uL Urine RBC 1 0 - 4 /hpf Urine Microscopic WBC 16 H 0-5 /HPF Urine Squamous Epithelial Cells Few <5 /hpf Urine Transitional Epithelial Cells Few <2 /hpf Urine Bacteria None seen None Seen /hpf Urine Hyaline Casts Few 0 - 2 /lpf Urine Mucus Few None Seen Urine Glucose Normal Normal mg/dL Assessment/Plan Assessment/Plan Hold her ERICA inhibitor for mild hyperkalemia. IV fluids. Clear liquid diet. Repeat the labs tomorrow. Iron studies. Stool occult blood. GI and nephrology consultation. Ultrasound of the kidneys. Empiric IV antibiotics. Accu-Cheks and sliding scale insulin. Resume other blood pressure medications and other home medications. Pain and nausea medicines as needed. Otherwise continue rest of supportive care and treatment. Follow clinical management per clinical course and pending evaluations and studies. Discussed with the patient as well as the nurse regarding plan of care. Plan discussed with: Patient My Orders Orders - JASPER MCKENZIE MD Procedure Category Date Status Time (Nf) Atorvastatin PHA 09/22/24 Logged Calcium 10:00 Metoprolol Xl PHA 09/22/24 In Process Succinate (Toprol Xl) 10:00 Admit ADMIT 09/21/24 Transmitted 16:55 Nitroglycerin PHA 09/21/24 In Process Sublingual (Ntrostat 17:00 Morphine Sulfate PHA 09/21/24 In Process Injection 17:00 Stat Ekg For Chest VILMA 09/21/24 In Process Pain 16:55 Notify Of Changes VILMA 09/21/24 In Process From Base 16:55 Industrial Roofer Helper For VILMA 09/21/24 In Process 24 Hours 16:55 Emergency Dysrhythmia VILMA 09/21/24 In Process Protocol 16:55 Rhythm Strips Once VILMA 09/21/24 In Process Every Shift 16:55 Oxygen By Nasal RT 09/21/24 Transmitted Cannula 16:55 Clear Liq Diet DIET 09/21/24 Transmitted Dinner Sodium Chloride 0.9% PHA 09/21/24 In Process 17:00 Ondansetron Hcl PHA 09/21/24 In Process (Zofran) 17:00 Morphine Sulfate PHA 09/21/24 In Process Injection 17:00 Morphine Sulfate PHA 09/21/24 In Process Injection 17:00 Famotidine Injection PHA 09/21/24 Logged (Pepcid Injection) 22:00 Piperacillin-Tazob PHA 09/21/24 Logged 3.375gm (Zosyn 3.375g 22:00 Glucose Blood PHA 09/21/24 In Process (Accu-Chek Comfort 17:00 Insulin R (Human) PHA 09/21/24 In Process (Insulin R) 17:00 Dextrose 50% Syringe PHA 09/21/24 In Process 17:00 Complete Blood Count LAB 09/22/24 Verified 04:00 Comprehensive LAB 09/22/24 Verified Metabolic Panel 04:00 * [facility] CONS 09/21/24 Transmitted 16:55 Metoclopramide PHA 09/21/24 Logged Injection (Reglan 18:00 Lipase LAB 09/22/24 Verified 04:00 Kidney US 09/21/24 Transmitted 17:50 *Dr. [facility] CONS 09/21/24 Transmitted -[place] 17:50 Iron Panel LAB 09/21/24 Transmitted 17:50 Ferritin LAB 09/21/24 Transmitted 17:50 Problem List: (1) Weakness (2) Anemia, unspecified (3) Intractable abdominal pain (4) Acute renal failure (5) Acute hyperkalemia JASPER MCKENZIE MD Sep 21, 2024 17:56
[2024-09-21 19:01] LABS: % Iron Saturation 3.9 % (15-50)
--- NOTE | 2024-09-21 19:03 | DVH ---
INDICATION: ckd 3 TECHNIQUE: Multiple real-time sonographic images of the kidneys and bladder were obtained. COMPARISON: None FINDINGS: The right kidney measures 6.9 cm in length, with increased echogenicity. No hydronephrosis. The left kidney measures 6.8 cm in length, with increased echogenicity. No hydronephrosis. No large intraluminal masses are seen in the bladder. Urinary bladder prevoid volume of 816 cc with postvoid residual volume of 814 cc. IMPRESSION: Atrophic kidneys with increased renal cortical echogenicity bilaterally . Correlate for medical janny l disease. Distended urinary bladder with postvoid residual volume of 814 cc. Correlate for urinary retention.
[2024-09-21] MEDS: PIPERACILLIN-TAZOB 3.375GM 100 ML IV SCH (23:19)
[2024-09-21] MEDS: FAMOTIDINE (10MG/ML) 2ML VL IV SCH (23:19)
[2024-09-21] MEDS: METOCLOPRAMIDE HCL 5MG/ml INJ 2ml VIAL IV SCH (23:19)
[2024-09-21 23:39] VITALS: RESP 16
[2024-09-22] VITALS (7 sets, daily range): BP systolic 107–141; BP diastolic 47–78; PULSE 94–112; RESP 16–18; TEMP 98.2–98.9; O2SAT 91–98
[2024-09-22] MEDS ORDERED: LISI-285 PO (01:44)
[2024-09-22] MEDS: SODIUM CHLORIDE 0.9% 1,000 ML IV SCH (04:23)
[2024-09-22 07:42] LABS: Hemoglobin 7.7 g/dL (12.2-16.2)
[2024-09-22 07:45] LABS: Hematocrit 27.1 % (36.0-46.0); Mean Corpuscular Hemoglobin 22.3 pg (28.0-32.0); Mean Corpuscular Hgb Conc. 28.4 g/dL (32.0-36.0); Mean Corpuscular Volume 78.7 fL (80.0-100.0); Platelet Count (auto) 640 10^3/uL (140-450); Red Blood Cells 3.44 10^6/uL (4.0-5.20); White Blood Cell 19.6 10^3/uL (4.4-10.8)
[2024-09-22 07:47] LABS: Basophils % (manual) 0 (0.0-2.0); Blast Cells 0; Eosinophils % (manual) 0 (0-7); Metamyelocytes % 0; Myelocytes % 0; Promyelocytes % 0; Reactive Lymphocytes 0
[2024-09-22 07:55] LABS: Albumin 4.4 g/dL (3.2-4.8); Alkaline Phosphatase 106 U/L (46-116); Anion Gap 18 (5-15); Aspartate Aminotransferase 24 U/L (13-40); BUN/Creatinine Ratio 16.4 (10.0-20.0); Calcium 9.1 mg/dL (8.7-10.4); Potassium 4.9 mmol/L (3.5-5.1); Sodium 139 mmol/L (136-145); Total Protein 7.5 g/dL (5.7-8.2)
[2024-09-22 08:05] LABS: Alanine Aminotransferase < 9 U/L (7-40); Blood Urea Nitrogen 52 mg/dL (9-23); Carbon Dioxide 13 mmol/L (20-31); Chloride 108 mmol/L (98-107); Glucose 134 mg/dL (74-106)
[2024-09-22 08:06] LABS: Bilirubin, Total < 0.2 mg/dL (0.2-1.0)
[2024-09-22 09:03] LABS: Lipase 36 U/L (12-53)
[2024-09-22] MEDS: ATORVASTATIN 20 MG TAB PO SCH (10:55)
[2024-09-22] MEDS: METOPROLOL SUCCINATE XL 50 MG TAB PO SCH (10:56)
--- NOTE | 2024-09-22 11:51 | DVHINCON2 ---
GI Consult Consult Note GI consult note Date of Consultation: 09/22/2024 Chief Complaint: Abdominal pain and ileus Referring Physician: Dr. Carrizales H&P: 73-year-old female presented to ER with chief complaint of abdominal pain, started two weeks ago, getting worse now Patient has nausea and vomiting. No hematemesis Last BM one day ago, no melena or red blood in stool. Patient also complains of loose stool 5-6 days ago Patient admits to history of anemia, was on iron supplements, which was stopped one year ago per PCP Colonoscopy possible five years ago, unsure about results EGD 2010, gastritis Patient also complaining that she is not able to urinate for two days Past Medical History: Diabetes mellitus type 2, hypertension, hyperlipidemia, chronic kidney disease, anemia of chronic disease Past Surgical History: Appendectomy, hysterectomy and cholecystectomy as well as a left above-knee amputation Social History: NO smoking, drinking ETOH and use of illegal drugs. Family History: Noncontributory Review of Systems: Constitutional: no fever, chill, weight loss HEENT: no eye pain, no hearing loss, no oral lesion, no scleral icterus Heart: no chest pain, no chest pressure Lung: no cough, no dyspnea with exertion Abdomen: see HPI : Unable to urinate Physical exam: General: NAD, AAOX3 Chest: lung garcia clear to auscultation Heart: RRR, no murmur Abdomen: Mild tenderness to palpation, +BS Labs: Labs Test 09/22/24 11:02 09/22/24 06:50 09/21/24 18:19 09/21/24 13:37 Range/Units POC Glucose 109 H 70-106 mg/dl White Blood Count 19.6 H 4.4-10.8 10^3/uL Red Blood Count 3.44 L 4.0-5.20 10^6/uL Hemoglobin 7.7 L 12.2-16.2 g/dL Hematocrit 27.1 L 36.0-46.0 % Mean Corpuscular Volume 78.7 L 80.0-100.0 fL Mean Corpuscular Hemoglobin 22.3 L 28.0-32.0 pg Mean Corpuscular Hemoglobin Concent 28.4 L 32.0-36.0 g/dL Red Cell Distribution Width 19.0 H 11.8-14.3 % Platelet Count 640 H 140-450 10^3/uL Mean Platelet Volume 7.9 6.9-10.8 fL Neutrophils (%) (Auto) 37.0-80.0 % Lymphocytes (%) (Auto) 10.0-50.0 % Monocytes (%) (Auto) 0.0-12.0 % Basophils (%) (Auto) 0.0-2.0 % Neutrophils # (Auto) 1.6-8.6 10 ^3/uL Lymphocytes # (Auto) 0.4-5.4 10 ^3/uL Monocytes # (Auto) 0-1.3 10 ^3/uL Sodium Level 139 136-145 mmol/L Potassium Level 4.9 3.5-5.1 mmol/L Chloride Level 108 H 98-107 mmol/L Carbon Dioxide Level 13 L 20-31 mmol/L Anion Gap 18 H 5-15 Blood Urea Nitrogen 52 H 9-23 mg/dL Creatinine 3.17 H 0.550-1.02 mg/dL Glomerular Filtration Rate Calc 15 >90 mL/min BUN/Creatinine Ratio 16.4 10.0-20.0 Serum Glucose 134 H 74-106 mg/dL Calcium Level 9.1 8.7-10.4 mg/dL Total Bilirubin < 0.2 L 0.2-1.0 mg/dL Aspartate Amino Transferase (AST) 24 13-40 U/L Alanine Aminotransferase (ALT) < 9 7-40 U/L Alkaline Phosphatase 106 46-116 U/L Total Protein 7.5 5.7-8.2 g/dL Albumin 4.4 3.2-4.8 g/dL Lipase 36 12-53 U/L Iron Level 13 L 50-170 ug/dL Total Iron Binding Capacity 334 250-425 ug/dL Percent Iron Saturation 3.9 L 15-50 % Ferritin 18.8 10-291 ng/mL Hypochromasia (manual) Moderate Microcytosis Slight Test 09/21/24 12:05 Range/Units Urine Color Light-yellow Yellow Urine Clarity Clear Clear Urine pH 5.5 5.0-9.0 Urine Specific [place] 1.018 1.001-1.035 Urine Protein Trace H Negative Urine Ketones Negative Negative Urine Blood Negative Negative /uL Urine Nitrite Negative Negative Urine Bilirubin Negative Negative Urine Urobilinogen Normal Negative mg/dL Urine Leukocyte Esterase Negative Negative /uL Urine RBC 1 0 - 4 /hpf Urine Microscopic WBC 16 H 0-5 /HPF Urine Squamous Epithelial Cells Few <5 /hpf Urine Transitional Epithelial Cells Few <2 /hpf Urine Bacteria None seen None Seen /hpf Urine Hyaline Casts Few 0 - 2 /lpf Urine Mucus Few None Seen Urine Glucose Normal Normal mg/dL Imaging: CT abdomen pelvis IMPRESSION: 1. There are mildly prominent fluid-filled small bowel loops with no obvious transition point. The large bowel loops demonstrate normal caliber. Findings May relate to mild ileus. 2. Distal colon diverticulosis without evidence of acute diverticulitis. 3. Cholecystectomy and hysterectomy. Renal ultrasound IMPRESSION: Atrophic kidneys with increased renal cortical echogenicity bilaterally . Correlate for medical renal disease. Distended urinary bladder with postvoid residual volume of 814 cc. Correlate for urinary retention. Assessment: Abdominal pain Possible ileus Anemia MARISA Urinary retention Plan: Discussed with Dr. Mahesh Laguna for occult blood Monitor labs, transfuse if hemoglobin less than seven Nephrology consult pending Possible outpatient elective GI procedures recommended at this time We will continue to monitor the patient Discussed plan with patient, family at bedside and RN Thank you for this consult Date of Service: Sep 22, 2024 Billing Provider: CALLIE REYNOSO Common Visit Codes: CONSULT ONLY Consultation Codes: [id number] CONSULT <60MIN CALLIE REYNOSO Sep 22, 2024 11:51
[2024-09-22 11:54] LABS: Band Neutrophils % (manual) 9; Lymphocytes % (manual) 7 (10.0-50.0); Monocytes % (manual) 8 (0-12)
[2024-09-22 11:55] LABS: Hypochromia Moderate; Platelet Estimate Increased
--- NOTE | 2024-09-22 12:10 | DVHINCON2 ---
Date of service: Sep 22, [address] Reyes Reason for Consultation Acute kidney injury History of Present Illness Patient is a 73-year-old female with past medical history of Anemia, CAD, CKD, DM, peripheral arterial disease High Lipids, HTN, GA, and TIA is admitted for lower abdominal pain dysuria, nausea vomiting and difficulty urinating. On admission patient found to have elevated BUN creatinine nephrology is consulted for acute kidney injury Past Medical History Anemia, CAD, CKD, DM, High Lipids, HTN, GA, TIA Past Surgical History Appendectomy, AKA, Cholecystectomy, Hysterectomy, Tonsillectomy,PTCA/PCI, partial thyroidectomy, left eye cataract surgery Allergies: Uncoded Allergies: ANESTHESIA (Allergy, Mild, 05/14/11) Home Meds Reported Medications Lisinopril & Hydrochlorothiazi (Lisinopril/Hydrochlorothi) 1 Tab Tab, 1 TAB PO DAILY, #30 TAB 5 Refills 09/22/24 Metformin Hydrochloride (Metformin Hcl) 500 Mg Tab, 1 TAB PO BID 12/16/22 Pregabalin (Pregabalin) 300 Mg Cap, 2 CAP PO BID 12/16/22 Clopidogrel Bisulfate (Plavix) 75 Mg Tab, 75 MG PO DAILY 05/14/11 Discontinued Reported Medications Atorvastatin Calcium (ATORVASTATIN CALCIUM) 40 Mg Tab, 1 TAB PO DAILY 12/16/22 Hydrocodone-Acetaminophen (Hydrocodone/Acetaminophen 7.5-325 mg) 1 Tab Tab, 1 TAB PO QID PRN for PAIN SCALE 7 THRU 10 12/16/22 Clopidogrel Bisulfate (CLOPIDOGREL) 75 Mg Tab, 1 TAB PO DAILY 12/16/22 Aspirin (Aspirin Adult Low Dose) 81 Mg Tab, 1 TAB PO DAILY 12/16/22 Metoprolol Succinate (Metoprolol Succinate Er) 25 Mg Tab, 1 TAB PO 12/16/22 Lisinopril (Lisinopril) 10 Mg Tab, 10 MG PO DAILY 05/14/11 Current Medications Current Medications Medications (Trade) Dose Ordered Sig/Ruth Route PRN Reason Start Time Stop Time Status Last Admin Atorvastatin Calcium (Lipitor) 40 mg DAILY PO 09/22/24 10:00 09/22/24 10:55 Metoprolol Succinate (Toprol Xl) 25 mg DAILY PO 09/22/24 10:00 09/22/24 10:56 Nitroglycerin (Ntrostat Sublingual) 0.4 mg Q5MINP PRN SL FOR CHEST PAIN 3/11/25 17:00 09/22/24 00:03 DC Morphine Sulfate 2 mg Q30M PRN IV FOR CHEST PAIN 09/21/24 17:00 09/22/24 00:03 DC Sodium Chloride 1,000 ml @ 75 mls/hr [id number] IV 09/21/24 17:00 09/22/24 11:53 DC 09/22/24 04:23 Ondansetron HCl (Zofran) 4 mg Q4HPRN PRN IV NAUSEA / VOMITING 09/21/24 17:00 09/21/24 17:38 Morphine Sulfate 1 mg Q3HP PRN IV MODERATE PAIN (4-6 PAIN SCALE) 09/21/24 17:00 Morphine Sulfate 2 mg Q3HPRN PRN IV SEVERE PAIN (7-10 PAIN SCALE) 09/21/24 17:00 09/22/24 11:12 Famotidine (Pepcid Injection) 20 mg Q48H IV 09/21/24 22:00 09/21/24 23:19 Piperacillin Sod/ Tazobactam Sod 100 ml @ 25 mls/hr Q12HR IV 09/21/24 22:00 09/22/24 10:54 Diagnostic Test (Pha) (Accu-Chek Comfort Curve T) 1 strip ACHS 09/21/24 17:00 09/22/24 11:03 Insulin Human Regular (InsuLIN R) ACHS SC 09/21/24 17:00 09/22/24 06:20 Dextrose 50 ml UD PRN IV Blood Sugar LESS THAN 60 09/21/24 17:00 Metoclopramide HCl (Reglan Injection) 5 mg Q6HR IV 09/21/24 18:00 09/22/24 11:11 Bethanechol Chloride (Urecholine Tablet) 25 mg Q8HR PO 09/22/24 14:00 Tamsulosin HCl (Flomax) 0.4 mg QPM PO 09/22/24 18:00 Sodium Bicarbonate 50 ml/ Sodium Chloride 1,050 ml @ 100 mls/hr [id number] IV 09/22/24 12:00 Family History: Diabetes mellitus G8 MOTHER, , Cause: CHF (congestive heart failure) FH: CHF (congestive heart failure) G8 MOTHER, , Cause: CHF (congestive heart failure) Hypertension G8 MOTHER, , Cause: CHF (congestive heart failure) Review of Systems All 12 item review of systems reviewed with the patient nonsignificant except what is mentioned in the history of present illness H&P Exam Vital Signs/I&O Vital Sign Date Time Temp Pulse Resp B/P (MAP) Pulse Ox O2 Delivery O2 Flow Rate FiO2 09/22/24 11:12 112 16 129/50 09/22/24 09:00 98.4 96 98.4 09/22/24 08:05 Room Air* 0 21 Intake and Output 09/21/24 09/22/24 19:00 07:00 Intake Total 200 ml Balance 200 ml Intake Oral 200 ml Physical Exam Patient is awake alert Lungs clear to auscultation bilaterally Cardiac exam tachycardia GI sounds are present suprapubic tenderness Extremity no clubbing cyanosis or edema Urine Patient was awake and alert Labs/Diagnostic Data Labs/Diagnostic Data Laboratory Tests Test 09/22/24 11:02 09/22/24 06:50 09/22/24 06:05 09/21/24 23:22 Range/Units POC Glucose 109 H 153 H 124 H 70-106 mg/dl White Blood Count 19.6 H 4.4-10.8 10^3/uL Red Blood Count 3.44 L 4.0-5.20 10^6/uL Hemoglobin 7.7 L 12.2-16.2 g/dL Hematocrit 27.1 L 36.0-46.0 % Mean Corpuscular Volume 78.7 L 80.0-100.0 fL Mean Corpuscular Hemoglobin 22.3 L 28.0-32.0 pg Mean Corpuscular Hemoglobin Concent 28.4 L 32.0-36.0 g/dL Red Cell Distribution Width 19.0 H 11.8-14.3 % Platelet Count 640 H 140-450 10^3/uL Mean Platelet Volume 7.9 6.9-10.8 fL Neutrophils (%) (Auto) 37.0-80.0 % Lymphocytes (%) (Auto) 10.0-50.0 % Monocytes (%) (Auto) 0.0-12.0 % Basophils (%) (Auto) 0.0-2.0 % Neutrophils # (Auto) 1.6-8.6 10 ^3/uL Lymphocytes # (Auto) 0.4-5.4 10 ^3/uL Monocytes # (Auto) 0-1.3 10 ^3/uL Differential Total Cells Counted 100.0 100 Neutrophils % (Manual) 76 37.0-80.0 Band Neutrophils % (Manual) 9 Lymphocytes % (Manual) 7 L 10.0-50.0 Monocytes % (Manual) 8 0-12 Eosinophils % (Manual) 0 0-7 Basophils % (Manual) 0 0.0-2.0 Metamyelocytes % (manual) 0 Myelocytes % (Manual) 0 Promyelocytes % (Manual) 0 Blast Cells % (Manual) 0 Reactive Lymphocytes 0 Platelet Estimate Increased Hypochromasia (manual) Moderate Microcytosis Slight Sodium Level 139 136-145 mmol/L Potassium Level 4.9 3.5-5.1 mmol/L Chloride Level 108 H 98-107 mmol/L Carbon Dioxide Level 13 L 20-31 mmol/L Anion Gap 18 H 5-15 Blood Urea Nitrogen 52 H 9-23 mg/dL Creatinine 3.17 H 0.550-1.02 mg/dL Glomerular Filtration Rate Calc 15 >90 mL/min BUN/Creatinine Ratio 16.4 10.0-20.0 Serum Glucose 134 H 74-106 mg/dL Calcium Level 9.1 8.7-10.4 mg/dL Total Bilirubin < 0.2 L 0.2-1.0 mg/dL Aspartate Amino Transferase (AST) 24 13-40 U/L Alanine Aminotransferase (ALT) < 9 7-40 U/L Alkaline Phosphatase 106 46-116 U/L Total Protein 7.5 5.7-8.2 g/dL Albumin 4.4 3.2-4.8 g/dL Lipase 36 12-53 U/L Test 09/21/24 18:19 09/21/24 17:35 09/21/24 13:37 09/21/24 12:05 Range/Units Iron Level 13 L 50-170 ug/dL Total Iron Binding Capacity 334 250-425 ug/dL Percent Iron Saturation 3.9 L 15-50 % Ferritin 18.8 10-291 ng/mL POC Glucose 123 H 70-106 mg/dl White Blood Count 25.8 H 4.4-10.8 10^3/uL Red Blood Count 3.41 L 4.0-5.20 10^6/uL Hemoglobin 7.5 L 12.2-16.2 g/dL Hematocrit 26.3 L 36.0-46.0 % Mean Corpuscular Volume 77.3 L 80.0-100.0 fL Mean Corpuscular Hemoglobin 22.2 L 28.0-32.0 pg Mean Corpuscular Hemoglobin Concent 28.7 L 32.0-36.0 g/dL Red Cell Distribution Width 19.2 H 11.8-14.3 % Platelet Count 675 H 140-450 10^3/uL Mean Platelet Volume 7.9 6.9-10.8 fL Neutrophils (%) (Auto) 37.0-80.0 % Lymphocytes (%) (Auto) 10.0-50.0 % Monocytes (%) (Auto) 0.0-12.0 % Basophils (%) (Auto) 0.0-2.0 % Neutrophils # (Auto) 1.6-8.6 10 ^3/uL Lymphocytes # (Auto) 0.4-5.4 10 ^3/uL Monocytes # (Auto) 0-1.3 10 ^3/uL Differential Total Cells Counted 100.0 100 Neutrophils % (Manual) 88 H 37.0-80.0 Band Neutrophils % (Manual) 6 Lymphocytes % (Manual) 4 L 10.0-50.0 Monocytes % (Manual) 0 0-12 Eosinophils % (Manual) 0 0-7 Basophils % (Manual) 0 0.0-2.0 Metamyelocytes % (manual) 2 Myelocytes % (Manual) 0 Promyelocytes % (Manual) 0 Blast Cells % (Manual) 0 Reactive Lymphocytes 0 Platelet Estimate Increased Hypochromasia (manual) Moderate Microcytosis Slight Sodium Level 139 136-145 mmol/L Potassium Level 5.3 H 3.5-5.1 mmol/L Chloride Level 109 H 98-107 mmol/L Carbon Dioxide Level 15 L 20-31 mmol/L Anion Gap 15 5-15 Blood Urea Nitrogen 47 H 9-23 mg/dL Creatinine 2.63 H 0.550-1.02 mg/dL Glomerular Filtration Rate Calc 19 >90 mL/min BUN/Creatinine Ratio 17.9 10.0-20.0 Serum Glucose 158 H 74-106 mg/dL Calcium Level 9.5 8.7-10.4 mg/dL Total Bilirubin < 0.2 L 0.2-1.0 mg/dL Aspartate Amino Transferase (AST) 16 13-40 U/L Alanine Aminotransferase (ALT) 9 7-40 U/L Alkaline Phosphatase 103 46-116 U/L Total Protein 7.6 5.7-8.2 g/dL Albumin 4.5 3.2-4.8 g/dL Lipase 31 12-53 U/L Urine Color Light-yellow Yellow Urine Clarity Clear Clear Urine pH 5.5 5.0-9.0 Urine Specific [place] 1.018 1.001-1.035 Urine Protein Trace H Negative Urine Ketones Negative Negative Urine Blood Negative Negative /uL Urine Nitrite Negative Negative Urine Bilirubin Negative Negative Urine Urobilinogen Normal Negative mg/dL Urine Leukocyte Esterase Negative Negative /uL Urine RBC 1 0 - 4 /hpf Urine Microscopic WBC 16 H 0-5 /HPF Urine Squamous Epithelial Cells Few <5 /hpf Urine Transitional Epithelial Cells Few <2 /hpf Urine Bacteria None seen None Seen /hpf Urine Hyaline Casts Few 0 - 2 /lpf Urine Mucus Few None Seen Urine Glucose Normal Normal mg/dL Assessment Acute kidney injury superimposed 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 I discussed my plan of care with the patient and the primary nurse at the bedside I would like to thank Dr. Reyes for the consult, will follow up Plan discussed with: Patient VIANEY HORTON MD Sep 22, 2024 12:10
[2024-09-22 13:33] LABS: Phosphorus 5.8 mg/dL (2.4-5.1)
[2024-09-22] MEDS: BETHANECHOL CHLORIDE 25 MG TAB PO SCH (14:41)
[2024-09-22] MEDS: SODIUM BICARB 50mEq/50ml Vial 50 ML in SOD CHL 0.45% 1,000 ML IV SCH (14:41)
[2024-09-22] MEDS ORDERED: MORPHINE SULFATE 4 MG/ML SYR/VIAL IV PRN (16:00)
[2024-09-22] MEDS: HYDROcodone-ACET 5/325MG TAB PO PRN (16:29)
--- NOTE | 2024-09-22 16:37 | DVHPN2 ---
Progress Note - Dictate Date Seen: Sep 22, 2024 Medical Necessity Reason Pt with a Central, PICC or Fol: No Subjective Clinically feeling better. Abdominal pain is improved. Patient is seen and evaluated by Gastroenterology and Nephrology. Patient apparently retaining urine based on the ultrasound of the kidneys therefore Erwin catheter was placed and more than 500 cc urine output noted. Patient does not have any known history of urinary retention however she does have kidney failure. She also complains of bilateral upper arm/hand weakness which appears to be chronic for many months for her who is at bedside. vital signs Vital Sign Date Time Temp Pulse Resp B/P (MAP) Pulse Ox O2 Delivery O2 Flow Rate FiO2 09/22/24 13:00 98.9 106 18 125/60 (81) 93 98.9 09/22/24 08:05 Room Air* 0 21 Total Intake and Output 09/21/24 09/21/24 09/22/24 15:00 23:00 07:00 Intake Total 200 ml Balance 200 ml medications Current Medications Medications Dose Ordered Sig/Ruth Route Start Time Stop Time Status Last Admin Dose Admin Atorvastatin Calcium 40 mg DAILY PO 09/22/24 10:00 09/22/24 10:55 40 MG Metoprolol Succinate 25 mg DAILY PO 09/22/24 10:00 09/22/24 10:56 25 MG Ondansetron HCl 4 mg Q4HPRN PRN IV 09/21/24 17:00 09/21/24 17:38 4 MG Famotidine 20 mg Q48H IV 09/21/24 22:00 09/21/24 23:19 20 MG Piperacillin Sod/ Tazobactam Sod 100 ml @ 25 mls/hr Q12HR IV 09/21/24 22:00 09/22/24 10:54 25 MLS/HR Diagnostic Test (Pha) 1 strip ACHS 09/21/24 17:00 09/22/24 11:03 1 STRIP Insulin Human Regular ACHS SC 09/21/24 17:00 09/22/24 06:20 2 UNITS Dextrose 50 ml UD PRN IV 09/21/24 17:00 Bethanechol Chloride 25 mg Q8HR PO 09/22/24 14:00 09/22/24 14:41 25 MG Tamsulosin HCl 0.4 mg QPM PO 09/22/24 18:00 Sodium Bicarbonate 50 ml/ Sodium Chloride 1,050 ml @ 100 mls/hr [id number] IV 09/22/24 12:00 09/22/24 14:41 100 MLS/HR Morphine Sulfate 3 mg Q3HPRN PRN IV 09/22/24 16:00 Acetaminophen/ Hydrocodone Bitart 1 tab Q4HPRN PRN PO 09/22/24 16:00 09/22/24 16:29 1 TAB Ferrous Sulfate 300 mg DAILY PO 09/23/24 10:00 UNV objective Sitting in the chair. at bedside. HEENT neck supple no JVD. Pupils equal round react to light. Heart regular rate and rhythm S1-S2. Lungs fair air movement without rales wheezes. Abdomen soft nontender positive bowel sounds. Extremities no edema. Neurologically her strength is normal and equivocal in upper extremities but appears to be 4 out of five. No gross focal deficits noted laboratory and microbiology Laboratory Tests 09/22/24 06:50 Test 09/22/24 06:50 Range/Units Serum Glucose 134 H 74-106 mg/dL Assessment/Plan Given her abdominal pain is improving and no further diarrhea we will advance her diet as she tolerates. Continue empiric antibiotics given her white cell count is improved. We will also check MRI of the brain and cervical spine given her complaints of hand weakness which appears to be chronic. Patient will have Erwin catheter and have urology consultation for urinary retention. Her vitamin-D levels are significantly low. Therefore we will start her on vitamin- D tablets. Also started her on iron and vitamin-C for anemia of chronic disease based on her iron studies. This is all discussed with the patient and her at bedside. They verbalized understanding of this and agree with the current care plan Problems(with codes): (1) Anemia, unspecified (2) Weakness (3) Intractable abdominal pain (4) Acute renal failure Plan discussed with: Patient, Spouse JASPER MCKENZIE MD Sep 22, 2024 16:37
[2024-09-22] MEDS: TAMSULOSIN HYDROCHLORIDE 0.4 MG CAP PO SCH (18:05)
--- NOTE | 2024-09-22 18:06 | DVHINCON2 ---
Date of service: Sep 22, 2024 Referring Physician Eric Reason for Consultation Urinary retention History of Present Illness 73 year old female accompanied by presents to the ED with chief complaint of abdominal pain. Patient reports that she has been experiencing 10/10 diffuse abdominal pain with associated radiation of pain to her back, dysuria, nausea, and vomiting for the past week. Patient denies any diarrhea, hematemesis, melena, rectal bleeding, fever, chills, hematuria, or dizziness. Apparently she had diarrhea 5-6 days ago. However currently no diarrhea. No hematemesis or hematochezia. No fevers chills or sweats. Other review of systems reviewed normal. In the ER patient is evaluated noted to be anemic with a hemoglobin of 7.6[place] [address] Patient is also noted to be in renal failure with elevated BUN creatinine. Because of these abnormalities with the her complaints and CT scan findings she is being admitted to the hospital for further evaluation management. Past Medical History Diabetes mellitus type 2, hypertension, hyperlipidemia, chronic kidney disease, anemia of chronic disease Past Surgical History Appendectomy, hysterectomy and cholecystectomy as well as a left above-knee amputation Family History: Diabetes mellitus G8 MOTHER, , Cause: CHF (congestive heart failure) FH: CHF (congestive heart failure) G8 MOTHER, , Cause: CHF (congestive heart failure) Hypertension G8 MOTHER, , Cause: CHF (congestive heart failure) Allergies: Uncoded Allergies: ANESTHESIA (Allergy, Mild, 05/14/11) Home Meds Reported Medications Lisinopril & Hydrochlorothiazi (Lisinopril/Hydrochlorothi) 1 Tab Tab, 1 TAB PO DAILY, #30 TAB 5 Refills 09/22/24 Metformin Hydrochloride (Metformin Hcl) 500 Mg Tab, 1 TAB PO BID 12/16/22 Pregabalin (Pregabalin) 300 Mg Cap, 2 CAP PO BID 12/16/22 Clopidogrel Bisulfate (Plavix) 75 Mg Tab, 75 MG PO DAILY 05/14/11 Discontinued Reported Medications Atorvastatin Calcium (ATORVASTATIN CALCIUM) 40 Mg Tab, 1 TAB PO DAILY 12/16/22 Hydrocodone-Acetaminophen (Hydrocodone/Acetaminophen 7.5-325 mg) 1 Tab Tab, 1 TAB PO QID PRN for PAIN SCALE 7 THRU 10 12/16/22 Clopidogrel Bisulfate (CLOPIDOGREL) 75 Mg Tab, 1 TAB PO DAILY 12/16/22 Aspirin (Aspirin Adult Low Dose) 81 Mg Tab, 1 TAB PO DAILY 12/16/22 Metoprolol Succinate (Metoprolol Succinate Er) 25 Mg Tab, 1 TAB PO 12/16/22 Lisinopril (Lisinopril) 10 Mg Tab, 10 MG PO DAILY 05/14/11 Current Medications Current Medications Medications (Trade) Dose Ordered Sig/Ruth Route PRN Reason Start Time Stop Time Status Last Admin Atorvastatin Calcium (Lipitor) 40 mg DAILY PO 09/22/24 10:00 09/22/24 10:55 Metoprolol Succinate (Toprol Xl) 25 mg DAILY PO 09/22/24 10:00 09/22/24 10:56 Famotidine (Pepcid Injection) 20 mg Q48H IV 09/21/24 22:00 09/21/24 23:19 Piperacillin Sod/ Tazobactam Sod 100 ml @ 25 mls/hr Q12HR IV 09/21/24 22:00 09/22/24 10:54 Bethanechol Chloride (Urecholine Tablet) 25 mg Q8HR PO 09/22/24 14:00 09/22/24 14:41 Tamsulosin HCl (Flomax) 0.4 mg QPM PO 09/22/24 18:00 Sodium Bicarbonate 50 ml/ Sodium Chloride 1,050 ml @ 100 mls/hr [id number] IV 09/22/24 12:00 09/22/24 14:41 Morphine Sulfate 3 mg Q3HPRN PRN IV MODERATE PAIN (4-6 PAIN SCALE) 09/22/24 16:00 Acetaminophen/ Hydrocodone Bitart (Cascade 5/325MG Tab) 1 tab Q4HPRN PRN PO MILD PAIN (1-3 PAIN SCALE) 09/22/24 16:00 09/22/24 16:29 Ferrous Sulfate 300 mg DAILY PO 09/23/24 10:00 Cholecalciferol (Vitamin D3 Tablet) 4,000 unit DAILY PO 09/23/24 10:00 Ascorbic Acid (Vitamin C Tablet) 500 mg DAILY PO 09/23/24 10:00 Review of Systems No fevers chills or sweats. Patient does have some nausea and abdominal pain. No vomiting. No hematochezia or hematemesis. No diarrhea. No recent travel. Other review of systems reviewed normal. No weight loss. Normal appetite. Allergies: Uncoded Allergies: ANESTHESIA (Allergy, Mild, 05/14/11) Medications Current Medications Medications Dose Ordered Sig/Ruth Route Start Time Stop Time Status Last Admin Dose Admin Patient Own Medication 1 tab DAILY PO 09/22/24 10:00 UNV Metoprolol Succinate 25 mg DAILY PO 09/22/24 10:00 Nitroglycerin 0.4 mg Q5MINP PRN SL 09/21/24 17:00 Morphine Sulfate 2 mg Q30M PRN IV 09/21/24 17:00 Sodium Chloride 1,000 ml @ 75 mls/hr [id number] IV 09/21/24 17:00 Ondansetron HCl 4 mg Q4HPRN PRN IV 09/21/24 17:00 09/21/24 17:38 4 MG Morphine Sulfate 1 mg Q3HP PRN IV 09/21/24 17:00 Morphine Sulfate 2 mg Q3HPRN PRN IV 09/21/24 17:00 09/21/24 17:47 2 MG Famotidine 20 mg Q12HR IV 09/21/24 22:00 UNV Piperacillin Sod/ Tazobactam Sod 100 ml @ 25 mls/hr Q8HR IV 09/21/24 22:00 UNV Diagnostic Test (Pha) 1 strip ACHS 09/21/24 17:00 09/21/24 17:00 1 STRIP Insulin Human Regular ACHS SC 09/21/24 17:00 Dextrose 50 ml UD PRN IV 09/21/24 17:00 Metoclopramide HCl 5 mg Q6HR IV 09/21/24 18:00 UNV Vital Signs Vital Signs Date Time Temp Pulse Resp B/P (MAP) Pulse Ox O2 Delivery O2 Flow Rate FiO2 09/22/24 16:48 98.2 96 16 107/78 (88) 98 98.2 09/22/24 08:05 Room Air* 0 21 Physical Exam Vital Signs Date Time Temp Pulse Resp B/P (MAP) Pulse Ox O2 Delivery O2 Flow Rate FiO2 09/21/24 17:47 110 18 113/62 09/21/24 17:07 98.0 94 98.0 09/21/24 14:30 Room Air* 0 21 Exam Elderly female pleasant comfortable sitting in the chair. Alert awake oriented x3. HEENT neck supple no JVD pupils equal round react to light. Heart regular rate and rhythm S1-S2 without murmurs. Lungs fair air movement chest tube will expansion. No rales or wheezing. Abdomen is soft. Mild tenderness nonspecific to palpation without any rebound or guarding. Positive active bowel sounds. No organomegaly. Extremities patient has a left above-knee amputation. Right lower extremity positive distal pedal pulses. No edema noted. Labs/Diagnostic Data Labs Test 09/22/24 11:02 09/22/24 06:50 09/21/24 18:19 09/21/24 12:05 Range/Units POC Glucose 109 H 70-106 mg/dl White Blood Count 19.6 H 4.4-10.8 10^3/uL Red Blood Count 3.44 L 4.0-5.20 10^6/uL Hemoglobin 7.7 L 12.2-16.2 g/dL Hematocrit 27.1 L 36.0-46.0 % Mean Corpuscular Volume 78.7 L 80.0-100.0 fL Mean Corpuscular Hemoglobin 22.3 L 28.0-32.0 pg Mean Corpuscular Hemoglobin Concent 28.4 L 32.0-36.0 g/dL Red Cell Distribution Width 19.0 H 11.8-14.3 % Platelet Count 640 H 140-450 10^3/uL Mean Platelet Volume 7.9 6.9-10.8 fL Neutrophils (%) (Auto) 37.0-80.0 % Lymphocytes (%) (Auto) 10.0-50.0 % Monocytes (%) (Auto) 0.0-12.0 % Basophils (%) (Auto) 0.0-2.0 % Neutrophils # (Auto) 1.6-8.6 10 ^3/uL Lymphocytes # (Auto) 0.4-5.4 10 ^3/uL Monocytes # (Auto) 0-1.3 10 ^3/uL Differential Total Cells Counted 100.0 100 Neutrophils % (Manual) 76 37.0-80.0 Band Neutrophils % (Manual) 9 Lymphocytes % (Manual) 7 L 10.0-50.0 Monocytes % (Manual) 8 0-12 Eosinophils % (Manual) 0 0-7 Basophils % (Manual) 0 0.0-2.0 Metamyelocytes % (manual) 0 Myelocytes % (Manual) 0 Promyelocytes % (Manual) 0 Blast Cells % (Manual) 0 Reactive Lymphocytes 0 Platelet Estimate Increased Hypochromasia (manual) Moderate Microcytosis Slight Sodium Level 139 136-145 mmol/L Potassium Level 4.9 3.5-5.1 mmol/L Chloride Level 108 H 98-107 mmol/L Carbon Dioxide Level 13 L 20-31 mmol/L Anion Gap 18 H 5-15 Blood Urea Nitrogen 52 H 9-23 mg/dL Creatinine 3.17 H 0.550-1.02 mg/dL Glomerular Filtration Rate Calc 15 >90 mL/min BUN/Creatinine Ratio 16.4 10.0-20.0 Serum Glucose 134 H 74-106 mg/dL Calcium Level 9.1 8.7-10.4 mg/dL Phosphorus Level 5.8 H 2.4-5.1 mg/dL Magnesium Level 2.0 1.6-2.6 mg/dL Total Bilirubin < 0.2 L 0.2-1.0 mg/dL Aspartate Amino Transferase (AST) 24 13-40 U/L Alanine Aminotransferase (ALT) < 9 7-40 U/L Alkaline Phosphatase 106 46-116 U/L B-Type Natriuretic Peptide 43.71 0-100 pg/mL Total Protein 7.5 5.7-8.2 g/dL Albumin 4.4 3.2-4.8 g/dL Lipase 36 12-53 U/L Vitamin D 25-Hydroxy 4.6 L 30.0-100 ng/mL Parathyroid Hormone (Intact) 88.7 H 18.4-80.1 pg/mL Iron Level 13 L 50-170 ug/dL Total Iron Binding Capacity 334 250-425 ug/dL Percent Iron Saturation 3.9 L 15-50 % Ferritin 18.8 10-291 ng/mL Urine Color Light-yellow Yellow Urine Clarity Clear Clear Urine pH 5.5 5.0-9.0 Urine Specific [place] 1.018 1.001-1.035 Urine Protein Trace H Negative Urine Ketones Negative Negative Urine Blood Negative Negative /uL Urine Nitrite Negative Negative Urine Bilirubin Negative Negative Urine Urobilinogen Normal Negative mg/dL Urine Leukocyte Esterase Negative Negative /uL Urine RBC 1 0 - 4 /hpf Urine Microscopic WBC 16 H 0-5 /HPF Urine Squamous Epithelial Cells Few <5 /hpf Urine Transitional Epithelial Cells Few <2 /hpf Urine Bacteria None seen None Seen /hpf Urine Hyaline Casts Few 0 - 2 /lpf Urine Mucus Few None Seen Urine Glucose Normal Normal mg/dL Microbiology Date/Time Source Procedure Growth Status 09/22/24 05:50 Nose MRSA Screen - Final Complete PATIENT: PK VERA ACCT: [id number] UNIT: [id number] : 1950 LOC: OVERFLOW ROOM / BED: 1010-ER / A AGE / SEX: 73 / F ADM STATUS: ADM IN SERVICE 1750 ORDERING PHYSICIAN: JASPER MCKENZIE MD PROCEDURE(s): KIDUS - KIDNEY REASON: ckd 3 ORDER NUMBER(s): [id number], ACCESSION NUMBER(s): [id number] INDICATION: ckd 3 TECHNIQUE: Multiple real-time sonographic images of the kidneys and bladder were obtained. COMPARISON: None FINDINGS: The right kidney measures 6.9 cm in length, with increased echogenicity. No hydronephrosis. The left kidney measures 6.8 cm in length, with increased echogenicity. No hydronephrosis. No large intraluminal masses are seen in the bladder. Urinary bladder prevoid volume of 816 cc with postvoid residual volume of 814 cc. IMPRESSION: Atrophic kidneys with increased renal cortical echogenicity bilaterally . Correlate for medical renal disease. Distended urinary bladder with postvoid residual volume of 814 cc. Correlate for urinary retention. ATED BY: JENNI SIMMONS DO DICTATED DATE/TIME: 09/21/241899 SIGNED BY: JENNI SIMMONS DO SIGNED DATE/TIME: 09/21/24 190 CC: PATIENT: PK VERA ACCT: [id number] UNIT: [id number] : 1950 LOC: ER ROOM / BED: / AGE / SEX: 73 / F ADM STATUS: REG ER SERVICE 1309 ORDERING PHYSICIAN: ALVINO RM MD PROCEDURE(s): ABPL - CT AB PEL WO CON-NO ORAL OR IV REASON: pain ORDER NUMBER(s): [id number], ACCESSION NUMBER(s): [id number] CT ABDOMEN AND PELVIS WITHOUT CONTRAST CLINICAL HISTORY: pain TECHNIQUE: Multiple contiguous axial images of the abdomen and pelvis without intravenous contrast. The images were reformatted degenerate coronal and sagi ttal reconstructions. All CT scans at this medical facility are performed using dose modulation techniques as appropriate to a performed exam including the following:Automated exposure control was utilized; adjustment of the MA and/or KV according to siomara ent size; and use of iterative reconstruction technique. Radiation Dose Information: CT Dose: CTDI volume is 6.46 mGy. Dose-length product is 338.42 mGy*cm Comparison: None FINDINGS: Evaluation of the abdomen and pelvis is limited without intravenous contrast. Gallbladder is surgically absent. There are few scattered small hepatic cysts and dystrophic calcifications. The pancreas, kidneys, adrenal glands, and spleen appear within normal limits. There is no gross evidence of abdominal lymphadenopathy. There is no free fluid or free air. The stomach grossly appears unremarkable. There are mildly prominent fluid- filled small bowel loops measuring up to 2.6 cm. There is no obvious transition point. The large bowel loops are nondilated in contain air intermixed with stool. There are diverticula in the distal colon without evidence of acute diverticulitis. The appendix is not seen in the right lower quadrant abdomen. There are no secondary signs of acute appendicitis. There are calcified atherosclerotic changes in the abdominal aorta. The IVC appears within normal limits. The bladder appears unremarkable for the degree of distention. Uterus is surgically absent.. There is no gross evidence of a pelvic mass. There is no free fluid collection. Scarring versus atelectasis in the posterior lung bases. There is no acute osseous abnormality. IMPRESSION: 1. There are mildly prominent fluid-filled small bowel loops with no obvious transition point. The large bowel loops demonstrate normal caliber. Findings May relate to mild ileus. 2. Distal colon diverticulosis without evidence of acute diverticulitis. 3. Cholecystectomy and hysterectomy. HS:Y ATED BY: BAO CABRERA MD DICTATED DATE/TIME: 09/21/241338 SIGNED BY: BAO CABRERA MD SIGNED DATE/TIME: 09/21/241338 CC: Assessment CKD Azotemia with creatinine 3.4 Urinary retention Plan/Recommendation Erwin to gravity- may discharge with Erwin Serial creatinine level checks Outpatient cystoscopy/urodynamics when creatinine return to baseline. Plan discussed with: Patient, Other FACUNDO OLMOS MD Sep 22, 2024 18:05
[2024-09-22] MEDS ORDERED: LORazepam 2MG/ML-1ML VIAL IV ONE (20:30)
[2024-09-23] VITALS (11 sets, daily range): BP systolic 84–111; BP diastolic 23–52; PULSE 85–104; RESP 16–18; TEMP 97.7–98.8; O2SAT 93–100
[2024-09-23 08:12] LABS: Basophils # (auto) 0 10 ^3/uL (0-0.2); Basophils % (auto) 0.1 % (0.0-2.0); Eosinophils # (auto) 0.1 10 ^3/uL (0-0.8); Eosinophils % (auto) 0.4 % (0.0-7.0); Hematocrit 21.6 % (36.0-46.0); Lymphocytes # (auto) 1.1 10 ^3/uL (0.4-5.4); Lymphocytes % (auto) 7.9 % (10.0-50.0); Mean Corpuscular Hemoglobin 23.1 pg (28.0-32.0); Mean Corpuscular Hgb Conc. 29.8 g/dL (32.0-36.0); Mean Corpuscular Volume 77.6 fL (80.0-100.0); Monocytes # (auto) 1.5 10 ^3/uL (0-1.3); Neutrophils # (auto) 11.4 10 ^3/uL (1.6-8.6); Neutrophils % (auto) 80.6 % (37.0-80.0); Nucleated Red Blood Cells % 0.3 %; Red Blood Cells 2.79 10^6/uL (4.0-5.20); Red Cell Distribution Width 18.9 % (11.8-14.3); White Blood Cell 14.1 10^3/uL (4.4-10.8)
[2024-09-23 08:14] LABS: Platelet Count (auto) 520 10^3/uL (140-450)
[2024-09-23 08:15] LABS: Hemoglobin 6.4 g/dL (12.2-16.2)
[2024-09-23 08:27] LABS: Anion Gap 15 (5-15); Chloride 106 mmol/L (98-107); Sodium 136 mmol/L (136-145)
[2024-09-23 08:32] LABS: Calcium 8.1 mg/dL (8.7-10.4); Carbon Dioxide 15 mmol/L (20-31)
[2024-09-23 08:33] LABS: Glucose 96 mg/dL (74-106)
[2024-09-23 08:34] LABS: BUN/Creatinine Ratio 24.8 (10.0-20.0); Blood Urea Nitrogen 60 mg/dL (9-23)
[2024-09-23] MEDS ORDERED: fentaNYL CITRATE 100 MCG/2 ML VL ONE (09:54)
[2024-09-23] MEDS ORDERED: diphenhdrAMINE HCL 50 MG/1 ML VL ONE (09:54)
[2024-09-23] MEDS ORDERED: LIDOCAINE VISCOUS 2% 15ML UD ONE (09:54)
[2024-09-23] MEDS ORDERED: MIDAZOLAM HCL 5 MG/ML-1ML VIAL ONE (09:54)
[2024-09-23] MEDS: ASCORBIC ACID 500 MG TAB PO SCH (10:00)
[2024-09-23] MEDS: FERROUS SULFATE 300 MG/5 ML ORAL LIQ PO SCH (10:00)
[2024-09-23] MEDS: CHOLECALCIFEROL (VITD3) 1,000UNIT=25mCg TAB PO SCH (10:00)
[2024-09-23 10:42] LABS: Hepatitis B Surface Antigen Negative (Negative); Hepatitis C Antibody Negative (Negative)
--- NOTE | 2024-09-23 11:05 | DVHPN2 ---
Progress Note Date Seen: Sep 23, 2024 Resident Creating Document: ADRIANNA TORO RESIDENT Medical Necessity Reason Pt with a Central, PICC or Fol: No Subjective Review of Systems 73-year-old female presented to ER with chief complaint of abdominal pain, started two weeks ago, getting worse now, Patient has nausea and vomiting. No hematemesis, Patient also complains of loose stool 5-6 days ago, Patient admits to history of anemia, was on iron supplements, which was stopped one year ago per PCP, Colonoscopy possible five years ago, unsure about results, EGD 2010, gastritis, Patient also complaining that she is not able to urinate for two days. CT abd shows: There are mildly prominent fluid-filled small bowel loops with no obvious transition point. The large bowel loops demonstrate normal caliber. Findings May relate to mild ileus. Distal colon diverticulosis without evidence of acute diverticulitis. Cholecystectomy and hysterectomy. Objective vital signs Vital Sign Date Time Temp Pulse Resp B/P (MAP) Pulse Ox O2 Delivery O2 Flow Rate FiO2 09/23/24 09:00 97.7 94 16 84/41 (55) 95 97.7 09/22/24 20:00 Room Air* 0 21 Total Intake and Output 09/22/24 09/22/24 09/23/24 15:00 23:00 07:00 Intake Total 100 ml 680 ml 330 ml Output Total 300 ml Balance 100 ml 680 ml 30 ml medications Current Medications Medications Dose Ordered Sig/Ruth Route Start Time Stop Time Status Last Admin Dose Admin Atorvastatin Calcium 40 mg DAILY PO 09/22/24 10:00 09/22/24 10:55 40 MG Metoprolol Succinate 25 mg DAILY PO 09/22/24 10:00 09/22/24 10:56 25 MG Ondansetron HCl 4 mg Q4HPRN PRN IV 09/21/24 17:00 09/21/24 17:38 4 MG Famotidine 20 mg Q48H IV 09/21/24 22:00 09/21/24 23:19 20 MG Piperacillin Sod/ Tazobactam Sod 100 ml @ 25 mls/hr Q12HR IV 09/21/24 22:00 09/22/24 21:33 25 MLS/HR Diagnostic Test (Pha) 1 strip ACHS 09/21/24 17:00 09/23/24 06:08 1 STRIP Insulin Human Regular ACHS SC 09/21/24 17:00 09/22/24 18:05 2 UNITS Dextrose 50 ml UD PRN IV 09/21/24 17:00 Bethanechol Chloride 25 mg Q8HR PO 09/22/24 14:00 09/23/24 06:00 25 MG Tamsulosin HCl 0.4 mg QPM PO 09/22/24 18:00 09/22/24 18:05 0.4 MG Sodium Bicarbonate 50 ml/ Sodium Chloride 1,050 ml @ 100 mls/hr [id number] IV 09/22/24 12:00 09/22/24 14:41 100 MLS/HR Morphine Sulfate 3 mg Q3HPRN PRN IV 09/22/24 16:00 Acetaminophen/ Hydrocodone Bitart 1 tab Q4HPRN PRN PO 09/22/24 16:00 09/23/24 06:02 1 TAB Ferrous Sulfate 300 mg DAILY PO 09/23/24 10:00 Cholecalciferol 4,000 unit DAILY PO 09/23/24 10:00 Ascorbic Acid 500 mg DAILY PO 09/23/24 10:00 Examination GENERAL: Not in acute distress. HEENT: EOMI, Moist mucous membranes. No scleral icterus. No cervical lymphadenopathy. LUNGS: Clear to auscultation bilaterally. No accessory muscle use. CARDIOVASCULAR: Regular rate and rhythm. No murmur. No JVD. ABDOMEN: Mild tenderness to palpation, +BS EXTREMITIES: No edema. Nontender. SKIN: No rashes or lesions. Warm. NEUROLOGIC: Alert and oriented X3 laboratory and microbiology Laboratory Tests 09/23/24 07:39 Test 09/23/24 07:39 Range/Units Serum Glucose 96 74-106 mg/dL Microbiology Date/Time Source Procedure Growth Status 09/22/24 05:50 Nose MRSA Screen - Final Complete Problem List/Assessment/Plan Problem List/Assessment/Plan # Abdominal pain # Possible ileus # severe Anemia # MARISA # Urinary retention Plan: Today Hemoglobin 6.4, transfused 1 unit of PRBC Stool for occult blood: Pending Monitor labs, transfuse if hemoglobin less than seven CT abd shows: There are mildly prominent fluid-filled small bowel loops with no obvious transition point. The large bowel loops demonstrate normal caliber. Findings May relate to mild ileus. Distal colon diverticulosis without evidence of acute diverticulitis. Cholecystectomy and hysterectomy. Urology and Nephrology consult appreciated Possible outpatient elective GI procedures recommended at this time Hepatitis Negative. Thank you so much for the opportunity to consult on your patient. GI team will follow the patient. In case of any questions or concerns please feel free to reach out. Case discussed with Dr. Miguel Aragon. The patient and caregiver team agreed to the plan. Plan discussed with: Patient CORTEZADRIANNA RESIDENT Sep 23, 2024 11:05
--- NOTE | 2024-09-23 12:57 | DVHPN2 ---
Progress Note Date Seen: Sep 23, 2024 Medical Necessity Reason Pt with a Central, PICC or Fol: No Subjective Patient reports: No new complaints Other Systems: Patient seen and examined by myself today in follow-up Objective vital signs Vital Sign Date Time Temp Pulse Resp B/P (MAP) Pulse Ox O2 Delivery O2 Flow Rate FiO2 09/23/24 09:00 97.7 94 16 84/41 (55) 95 97.7 09/22/24 20:00 Room Air* 0 21 Total Intake and Output 09/22/24 09/22/24 09/23/24 15:00 23:00 07:00 Intake Total 100 ml 680 ml 330 ml Output Total 300 ml Balance 100 ml 680 ml 30 ml medications Current Medications Medications Dose Ordered Sig/Ruth Route Start Time Stop Time Status Last Admin Dose Admin Atorvastatin Calcium 40 mg DAILY PO 09/22/24 10:00 09/22/24 10:55 40 MG Metoprolol Succinate 25 mg DAILY PO 09/22/24 10:00 09/22/24 10:56 25 MG Ondansetron HCl 4 mg Q4HPRN PRN IV 09/21/24 17:00 09/21/24 17:38 4 MG Famotidine 20 mg Q48H IV 09/21/24 22:00 09/21/24 23:19 20 MG Piperacillin Sod/ Tazobactam Sod 100 ml @ 25 mls/hr Q12HR IV 09/21/24 22:00 09/23/24 10:00 25 MLS/HR Diagnostic Test (Pha) 1 strip ACHS 09/21/24 17:00 09/23/24 11:30 1 STRIP Insulin Human Regular ACHS SC 09/21/24 17:00 09/22/24 18:05 2 UNITS Dextrose 50 ml UD PRN IV 09/21/24 17:00 Bethanechol Chloride 25 mg Q8HR PO 09/22/24 14:00 09/23/24 06:00 25 MG Tamsulosin HCl 0.4 mg QPM PO 09/22/24 18:00 09/22/24 18:05 0.4 MG Sodium Bicarbonate 50 ml/ Sodium Chloride 1,050 ml @ 100 mls/hr [id number] IV 09/22/24 12:00 09/23/24 09:00 100 MLS/HR Morphine Sulfate 3 mg Q3HPRN PRN IV 09/22/24 16:00 Acetaminophen/ Hydrocodone Bitart 1 tab Q4HPRN PRN PO 09/22/24 16:00 09/23/24 06:02 1 TAB Ferrous Sulfate 300 mg DAILY PO 09/23/24 10:00 Cholecalciferol 4,000 unit DAILY PO 09/23/24 10:00 Ascorbic Acid 500 mg DAILY PO 09/23/24 10:00 Examination: LUNGS:Normal, CVS:Normal, MSK:Normal laboratory and microbiology Laboratory Tests 09/23/24 07:39 Test 09/23/24 07:39 Range/Units Serum Glucose 96 74-106 mg/dL Microbiology Date/Time Source Procedure Growth Status 09/22/24 05:50 Nose MRSA Screen - Final Complete Problem List/Assessment/Plan Problem List/Assessment/Plan Acute kidney injury superimposed 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 Diabetes mellitus type 2 Metabolic acidosis AFib Urinary tract infection Iron deficiency anemia Kidney function is improving Erwin catheter Strict I&Os IVF with half NS and 50 mEq sodium bicarb at 100 cc/hour IV antibiotics IV iron replaced Insulin sliding scale Kidney ultrasound reported bilateral echogenic kidney and distended urinary bladder Cardiology consult Urology consult GI consult We will continue to follow Plan discussed with: Patient Dietary Evaluation Review Comments: 1) [facility] + renal specific 40gm protein 2) refer CDE on DC 3) Continue current plan of care Expected Outcomes/Goals: Pt will meet >75% estimated needs Fu 2-3 days VIANEY HORTON MD Sep 23, 2024 12:57
--- NOTE | 2024-09-23 16:22 | DVHPN2 ---
Progress Note - Dictate Date Seen: Sep 23, 2024 Medical Necessity Reason Pt with a Central, PICC or Fol: No Subjective Patient had hemoglobin dropped today. She was receiving 1 unit of blood. Stool occult blood is positive. She was on Protonix. Evaluated by GI scheduled for EGD today. Patient is otherwise clinically asymptomatic. vital signs Vital Sign Date Time Temp Pulse Resp B/P (MAP) Pulse Ox O2 Delivery O2 Flow Rate FiO2 09/23/24 13:32 98.1 96 16 105/48 98.1 09/23/24 13:00 97 09/22/24 20:00 Room Air* 0 21 Total Intake and Output 09/22/24 09/22/24 09/23/24 15:00 23:00 07:00 Intake Total 100 ml 680 ml 330 ml Output Total 300 ml Balance 100 ml 680 ml 30 ml medications Current Medications Medications Dose Ordered Sig/Ruth Route Start Time Stop Time Status Last Admin Dose Admin Atorvastatin Calcium 40 mg DAILY PO 09/22/24 10:00 09/22/24 10:55 40 MG Metoprolol Succinate 25 mg DAILY PO 09/22/24 10:00 09/22/24 10:56 25 MG Ondansetron HCl 4 mg Q4HPRN PRN IV 09/21/24 17:00 09/21/24 17:38 4 MG Piperacillin Sod/ Tazobactam Sod 100 ml @ 25 mls/hr Q12HR IV 09/21/24 22:00 09/23/24 10:00 25 MLS/HR Diagnostic Test (Pha) 1 strip ACHS 09/21/24 17:00 09/23/24 11:30 1 STRIP Insulin Human Regular ACHS SC 09/21/24 17:00 09/22/24 18:05 2 UNITS Dextrose 50 ml UD PRN IV 09/21/24 17:00 Bethanechol Chloride 25 mg Q8HR PO 09/22/24 14:00 09/23/24 06:00 25 MG Sodium Bicarbonate 50 ml/ Sodium Chloride 1,050 ml @ 100 mls/hr [id number] IV 09/22/24 12:00 09/23/24 09:00 100 MLS/HR Morphine Sulfate 3 mg Q3HPRN PRN IV 09/22/24 16:00 Acetaminophen/ Hydrocodone Bitart 1 tab Q4HPRN PRN PO 09/22/24 16:00 09/23/24 06:02 1 TAB Ferrous Sulfate 300 mg DAILY PO 09/23/24 10:00 Cholecalciferol 4,000 unit DAILY PO 09/23/24 10:00 Ascorbic Acid 500 mg DAILY PO 09/23/24 10:00 Pantoprazole Sodium 40 mg BID IV 09/23/24 22:00 objective Alert awake oriented x3. HEENT neck supple no JVD. Pupils equal round react to light. Heart regular rate rhythm S1-S2. Lungs fair air movement without rales wheezes. Abdomen soft nontender positive bowel sounds. Extremities no edema positive pulses laboratory and microbiology Laboratory Tests 09/23/24 07:39 Test 09/23/24 07:39 Range/Units Serum Glucose 96 74-106 mg/dL Assessment/Plan Transfuse 1 unit of packed red blood cells today. Patient is scheduled for EGD today. Continue Protonix. Continue rest of supportive care and treatment. Patient is seen by urologist and recommended outpatient follow up for her urinary retention. Patient will be discharged home with a catheter and leg bag. Discussed with her. She verbalized understanding over hospital care and agree with the current care plan. Problems(with codes): (1) Acute renal failure (2) Intractable abdominal pain (3) Weakness (4) Anemia Dietary Evaluation Review Comments: 1) [facility] + renal specific 40gm protein 2) refer CDE on DC 3) Continue current plan of care Expected Outcomes/Goals: Pt will meet >75% estimated needs Fu 2-3 days Plan discussed with: Patient, Other JASPER MCKENZIE MD Sep 23, 2024 16:22
[2024-09-23] MEDS: MIDAZOLAM HCL 5 MG/ML-1ML VIAL IV ONE (16:40)
--- NOTE | 2024-09-23 16:56 | DVHOP2 ---
Operative Report DATE OF OPERATION: 09/23/24 PROCEDURE: Upper Endoscopy with biopsy PREOPERATIVE INDICATION: The patient is a 73 -year-old female undergoing endoscopy for anemia and drop in hemoglobin hematocrit POSTOPERATIVE DIAGNOSES: 1. Twqmfwbx-ib-wctkbf oral candidiasis and thrush and also evidence of candidal esophagitis in the proximal and distal esophagus from which biopsies were obtained 2. 2 cm sliding-type hiatal hernia with grade a erosive esophagitis 3. Moderate gastritis with multiple gastric ulcers and erosions 4. There was a large duodenal bulb ulcer about 2-3 cm in size on the anterior and inferior surface of the duodenal bulb 5. Otherwise normal examination up to the 2nd and 3rd part of the duodenum with no fresh or old blood in the GI tract PROCEDURE PERFORMED BY: Laney Aragon GI NURSE: Jose SCOPE: Olympus videoendoscope. ASA CLASS: 3. PREOPERATIVE MEDICATIONS: Versed 3 mg, Fentanyl 75 mcg, Benadryl 50 mg I administered moderate sedation throughout this _9_ minutes procedure. An independent trained observer pushed medications at my direction, and monitored the patient's level of consciousness and physiological status throughout. PROCEDURE IN DETAIL: After obtaining an informed consent, the patient was placed on left lateral decubitus position. The patient was then sedated with the above medications. A bite block was placed between her teeth. The endoscope was then passed through the oropharynx, into the esophagus, and through the stomach and pylorus up to the second and third part of the duodenum. The endoscope was then withdrawn. The 2nd and 3rd part of the duodenal were normal with good bile drainage. Duodenal biopsies were obtained The duodenal bulb and postbulbar area showed moderate duodenitis and there was a large 2-3 cm duodenal bulb ulcer on the anterior inferior surface of the duodenal bulb There were raised edges but no visible vessel no signs of active GI bleeding. The pre-pyloric area antrum and body showed moderate gastritis There were multiple pre-pyloric antral gastric ulcers. On retroflexion the fundus and cardia were normal except for mild gastritis. Gastric biopsies were obtained. The endoscope was then straightened withdrawn into the distal esophagus where the patient had a 2 cm sliding-type hiatal hernia with grade a to B erosive esophagitis Patient also had evidence of candidal esophagitis with a yellowish whitish p laques both in the distal esophagus and also more in the proximal esophagus Patient also had evidence of oral thrush in her oral cavity. The endoscope was then withdrawn The patient tolerated the procedure well without difficulty. COMPLICATIONS : None SPECIMENS: Duodenal biopsies Gastric biopsies Esophageal biopsies DISPOSITION: Transfer back to the floor Stable PLAN: 1. Await for biopsy result 2. Will place pt on Protonix 40 mg bid 3. Carafate suspension 1 g p.o. 4 times a day 4. Nystatin swish and swallow 5 mL p.o. three times a day for 20 days 5. DC aspirin NSAIDs smoking alcohol 6. Outpatient follow up with me in 2-4 weeks to review results and discuss further management 7. Patient does not want a colonoscopy either now or later as she believes he has complications from a hysterectomy and the colonoscopy is difficult to do LANEY ARAGON MD Sep 23, 2024 16:56
[2024-09-23] MEDS: SUCRALFATE 1 GM/10 ML ORAL SUSP PO SCH (17:00)
[2024-09-23] MEDS: NYSTATIN (MOUTH-THROAT) 500,000 UNITS/5 ML SUSP MT SCH (18:08)
[2024-09-23] MEDS: PANTOPRAZOLE 40 MG/10 ML VIAL INJ IV SCH (21:14)
[2024-09-23] MEDS ORDERED: PANTOPRAZOLE 40 MG/10 ML VIAL INJ IV SCH (22:00)
[2024-09-24] VITALS (8 sets, daily range): BP systolic 100–121; BP diastolic 35–48; PULSE 68–106; RESP 15–19; TEMP 97.6–98.7; O2SAT 92–100
[2024-09-24 07:31] LABS: Basophils # (auto) 0 10 ^3/uL (0-0.2); Neutrophils # (auto) 10.1 10 ^3/uL (1.6-8.6); Nucleated Red Blood Cells % 0.2 %; White Blood Cell 11.9 10^3/uL (4.4-10.8)
[2024-09-24 07:32] LABS: Basophils % (auto) 0.1 % (0.0-2.0); Eosinophils # (auto) 0.1 10 ^3/uL (0-0.8); Eosinophils % (auto) 0.5 % (0.0-7.0); Hematocrit 19.3 % (36.0-46.0); Lymphocytes # (auto) 0.8 10 ^3/uL (0.4-5.4); Lymphocytes % (auto) 6.6 % (10.0-50.0); Mean Corpuscular Hemoglobin 23.9 pg (28.0-32.0); Mean Corpuscular Hgb Conc. 32.2 g/dL (32.0-36.0); Monocytes % (auto) 8.3 % (0.0-12.0); Neutrophils % (auto) 84.5 % (37.0-80.0); Platelet Count (auto) 423 10^3/uL (140-450); Red Blood Cells 2.61 10^6/uL (4.0-5.20); Red Cell Distribution Width 18.6 % (11.8-14.3)
[2024-09-24 07:37] LABS: Sodium 141 mmol/L (136-145)
[2024-09-24 07:38] LABS: Anion Gap 11 (5-15)
[2024-09-24 07:39] LABS: Calcium 7.5 mg/dL (8.7-10.4); Carbon Dioxide 19 mmol/L (20-31); Chloride 111 mmol/L (98-107); Potassium 2.9 mmol/L (3.5-5.1)
[2024-09-24 07:44] LABS: BUN/Creatinine Ratio 27.6 (10.0-20.0); Glucose 91 mg/dL (74-106)
[2024-09-24 07:50] LABS: Hemoglobin 6.2 g/dL (12.2-16.2)
[2024-09-24 07:56] LABS: Blood Urea Nitrogen 27 mg/dL (9-23)
--- NOTE | 2024-09-24 13:08 | DVHPN2 ---
Progress Note Date Seen: Sep 24, 2024 Resident Creating Document: ADRIANNA TORO RESIDENT Medical Necessity Reason Pt with a Central, PICC or Fol: No Subjective Review of Systems 73-year-old female presented to ER with chief complaint of abdominal pain, started two weeks ago, getting worse now, Patient has nausea and vomiting. No hematemesis, Patient also complains of loose stool 5-6 days ago, Patient admits to history of anemia, was on iron supplements, which was stopped one year ago per PCP, Colonoscopy possible five years ago, unsure about results, EGD 2010, gastritis, Patient also complaining that she is not able to urinate for two days. CT abd shows: There are mildly prominent fluid-filled small bowel loops with no obvious transition point. The large bowel loops demonstrate normal caliber. Findings May relate to mild ileus. Distal colon diverticulosis without evidence of acute diverticulitis. Cholecystectomy and hysterectomy. EGD done on 09/23/2024. Objective vital signs Vital Sign Date Time Temp Pulse Resp B/P (MAP) Pulse Ox O2 Delivery O2 Flow Rate FiO2 09/24/24 10:45 68 116/45 09/24/24 09:27 97.6 16 93 97.6 09/23/24 20:00 Room Air* 0 21 Total Intake and Output 09/23/24 09/23/24 09/24/24 15:00 23:00 07:00 Intake Total 500 ml 1775 ml Output Total 875 ml 700 ml Balance -375 ml 1075 ml medications Current Medications Medications Dose Ordered Sig/Ruth Route Start Time Stop Time Status Last Admin Dose Admin Atorvastatin Calcium 40 mg DAILY PO 09/22/24 10:00 09/24/24 10:43 40 MG Metoprolol Succinate 25 mg DAILY PO 09/22/24 10:00 09/24/24 10:45 25 MG Ondansetron HCl 4 mg Q4HPRN PRN IV 09/21/24 17:00 09/21/24 17:38 4 MG Piperacillin Sod/ Tazobactam Sod 100 ml @ 25 mls/hr Q12HR IV 09/21/24 22:00 09/24/24 10:42 25 MLS/HR Diagnostic Test (Pha) 1 strip ACHS 09/21/24 17:00 09/24/24 11:30 1 STRIP Insulin Human Regular ACHS SC 09/21/24 17:00 09/22/24 18:05 2 UNITS Dextrose 50 ml UD PRN IV 09/21/24 17:00 Bethanechol Chloride 25 mg Q8HR PO 09/22/24 14:00 09/24/24 05:46 25 MG Morphine Sulfate 3 mg Q3HPRN PRN IV 09/22/24 16:00 Acetaminophen/ Hydrocodone Bitart 1 tab Q4HPRN PRN PO 09/22/24 16:00 09/23/24 18:07 1 TAB Ferrous Sulfate 300 mg DAILY PO 09/23/24 10:00 09/24/24 10:46 300 MG Cholecalciferol 4,000 unit DAILY PO 09/23/24 10:00 09/24/24 10:46 4,000 UNIT Ascorbic Acid 500 mg DAILY PO 09/23/24 10:00 09/24/24 10:43 500 MG Pantoprazole Sodium 40 mg BID IV 09/23/24 22:00 09/24/24 10:46 40 MG Sucralfate 1 gm QID@0600,1130,1700,2200 PO 09/23/24 17:00 09/24/24 11:12 1 GM Nystatin 5 ml QID MT 09/23/24 18:00 09/24/24 05:46 5 ML Potassium Bicarbonate 50 meq BID PO 09/24/24 22:00 Examination GENERAL: Not in acute distress. HEENT: EOMI, Moist mucous membranes. No scleral icterus. No cervical lymphadenopathy. LUNGS: Clear to auscultation bilaterally. No accessory muscle use. CARDIOVASCULAR: Regular rate and rhythm. No murmur. No JVD. ABDOMEN: Mild tenderness to palpation, +BS EXTREMITIES: No edema. Nontender. SKIN: No rashes or lesions. Warm. NEUROLOGIC: Alert and oriented X3. laboratory and microbiology Laboratory Tests 09/24/24 07:20 Test 09/24/24 07:20 Range/Units Serum Glucose 91 74-106 mg/dL Microbiology Date/Time Source Procedure Growth Status 09/22/24 05:50 Nose MRSA Screen - Final Complete Problem List/Assessment/Plan Problem List/Assessment/Plan # Abdominal pain # moderate gastritis with multiple gastric ulcer and erosion # large duodenal ulcer # Possible ileus # severe Anemia # MARISA # Urinary retention Plan: - EGD done on 09/23/2024: Moderate gastritis with multiple gastric ulcers and erosions, moderate to severe oral candidiasis, large duodenal bulb ulcer about 2-3 cm size - continue Protonix 40 mg IV b.i.d. - Carafate 1GM p.o. b.i.d. - Today Hemoglobin 6.2, transfused 2 unit of PRBC - Stool for occult blood: Positive - continue ferrous sulfate - continue nystatin for oral thrush - Monitor labs, transfuse if hemoglobin less than seven -keep him on clubbing more than 8 - Urology and Nephrology consult appreciated - Possible outpatient elective GI procedures recommended at this time - Hepatitis Negative. - Diet: Full liquid diet for now Thank you so much for the opportunity to consult on your patient. GI team will follow the patient. In case of any questions or concerns please feel free to reach out. Case discussed with Dr. Miguel Aragon. The patient and caregiver team agreed to the plan. Plan discussed with: Patient Dietary Evaluation Review Comments: 1) [facility] + renal specific 40gm protein 2) refer CDE on DC 3) Continue current plan of care Expected Outcomes/Goals: Pt will meet >75% estimated needs Fu 2-3 days ADRIANNA TORO RESIDENT Sep 24, 2024 13:08
--- NOTE | 2024-09-24 13:30 | DVHPN2 ---
Progress Note - Dictate Date Seen: Sep 24, 2024 Medical Necessity Reason Pt with a Central, PICC or Fol: No Subjective Resting supine, no acute distress vital signs Vital Sign Date Time Temp Pulse Resp B/P (MAP) Pulse Ox O2 Delivery O2 Flow Rate FiO2 09/24/24 10:45 68 116/45 09/24/24 09:27 97.6 16 93 97.6 09/23/24 20:00 Room Air* 0 21 Total Intake and Output 09/23/24 09/23/24 09/24/24 15:00 23:00 07:00 Intake Total 500 ml 1775 ml Output Total 875 ml 700 ml Balance -375 ml 1075 ml medications Current Medications Medications Dose Ordered Sig/Ruth Route Start Time Stop Time Status Last Admin Dose Admin Atorvastatin Calcium 40 mg DAILY PO 09/22/24 10:00 09/24/24 10:43 40 MG Metoprolol Succinate 25 mg DAILY PO 09/22/24 10:00 09/24/24 10:45 25 MG Ondansetron HCl 4 mg Q4HPRN PRN IV 09/21/24 17:00 09/21/24 17:38 4 MG Piperacillin Sod/ Tazobactam Sod 100 ml @ 25 mls/hr Q12HR IV 09/21/24 22:00 09/24/24 10:42 25 MLS/HR Diagnostic Test (Pha) 1 strip ACHS 09/21/24 17:00 09/24/24 11:30 1 STRIP Insulin Human Regular ACHS SC 09/21/24 17:00 09/22/24 18:05 2 UNITS Dextrose 50 ml UD PRN IV 09/21/24 17:00 Bethanechol Chloride 25 mg Q8HR PO 09/22/24 14:00 09/24/24 05:46 25 MG Morphine Sulfate 3 mg Q3HPRN PRN IV 09/22/24 16:00 Acetaminophen/ Hydrocodone Bitart 1 tab Q4HPRN PRN PO 09/22/24 16:00 09/23/24 18:07 1 TAB Ferrous Sulfate 300 mg DAILY PO 09/23/24 10:00 09/24/24 10:46 300 MG Cholecalciferol 4,000 unit DAILY PO 09/23/24 10:00 09/24/24 10:46 4,000 UNIT Ascorbic Acid 500 mg DAILY PO 09/23/24 10:00 09/24/24 10:43 500 MG Pantoprazole Sodium 40 mg BID IV 09/23/24 22:00 09/24/24 10:46 40 MG Sucralfate 1 gm QID@0600,1130,1700,2200 PO 09/23/24 17:00 09/24/24 11:12 1 GM Nystatin 5 ml QID MT 09/23/24 18:00 09/24/24 05:46 5 ML Potassium Bicarbonate 50 meq BID PO 09/24/24 22:00 objective Gen: nad heent: nc/at, mmm lungs: cta anteriorly cvs: no rub abd: soft, bowel sounds audible ext: no edema skin: no rash neuro: alert and oriented laboratory and microbiology Laboratory Tests 09/24/24 07:20 Test 09/24/24 07:20 Range/Units Serum Glucose 91 74-106 mg/dL Assessment/Plan Problem List/Assessment/Plan Acute kidney injury superimposed 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 Dietary Evaluation Review Comments: 1) [facility] + renal specific 40gm protein 2) refer CDE on DC 3) Continue current plan of care Expected Outcomes/Goals: Pt will meet >75% estimated needs Fu 2-3 days Plan discussed with: Patient BALDEMAR KRAUSE MD Sep 24, 2024 13:30
--- NOTE | 2024-09-24 16:19 | DVHPN2 ---
Subjective Overnight events noted. Patient's hemoglobin less than seven, we will be transfuse 1 unit of packed RBC. Patient does have a urinary retention status post Erwin catheter placement but she is requesting the Erwin to be taken out. Changes from previous H/P or p: No Changes Objective Vitals Vital Signs Date Time Temp Pulse Resp B/P (MAP) Pulse Ox O2 Delivery O2 Flow Rate FiO2 09/24/24 10:45 68 116/45 09/24/24 09:27 97.6 16 93 97.6 09/24/24 08:00 Room Air* 0 21 Intake/Output Intake and Output 09/24/24 07:00 Intake Total 2275 ml Output Total 1575 ml Balance 700 ml Intake Oral 750 ml IV Total 1225 ml Blood Product 300 ml Output Urine Total 1575 ml # Bowel Movements 10 Exam HEENT pupils are reactive Neck is supple CV is S1-S2 regular rate and rhythm Respiratory are clear GI positive bowel sound Extremity no edema [employer] no motor deficit Medications Current Medications Medications Dose Ordered Sig/Ruth Route Start Time Stop Time Status Last Admin Dose Admin Atorvastatin Calcium 40 mg DAILY PO 09/22/24 10:00 09/24/24 10:43 40 MG Metoprolol Succinate 25 mg DAILY PO 09/22/24 10:00 09/24/24 10:45 25 MG Ondansetron HCl 4 mg Q4HPRN PRN IV 09/21/24 17:00 09/21/24 17:38 4 MG Piperacillin Sod/ Tazobactam Sod 100 ml @ 25 mls/hr Q12HR IV 09/21/24 22:00 09/24/24 10:42 25 MLS/HR Diagnostic Test (Pha) 1 strip ACHS 09/21/24 17:00 09/24/24 11:30 1 STRIP Insulin Human Regular ACHS SC 09/21/24 17:00 09/22/24 18:05 2 UNITS Dextrose 50 ml UD PRN IV 09/21/24 17:00 Bethanechol Chloride 25 mg Q8HR PO 09/22/24 14:00 09/24/24 05:46 25 MG Morphine Sulfate 3 mg Q3HPRN PRN IV 09/22/24 16:00 Acetaminophen/ Hydrocodone Bitart 1 tab Q4HPRN PRN PO 09/22/24 16:00 09/23/24 18:07 1 TAB Ferrous Sulfate 300 mg DAILY PO 09/23/24 10:00 09/24/24 10:46 300 MG Cholecalciferol 4,000 unit DAILY PO 09/23/24 10:00 09/24/24 10:46 4,000 UNIT Ascorbic Acid 500 mg DAILY PO 09/23/24 10:00 09/24/24 10:43 500 MG Pantoprazole Sodium 40 mg BID IV 09/23/24 22:00 09/24/24 10:46 40 MG Sucralfate 1 gm QID@0600,1130,1700,2200 PO 09/23/24 17:00 09/24/24 11:12 1 GM Nystatin 5 ml QID MT 09/23/24 18:00 09/24/24 05:46 5 ML Potassium Bicarbonate 50 meq BID PO 09/24/24 22:00 Laboratory Results Laboratory Tests 09/24/24 07:20 Chemistry Test 09/24/24 07:20 Calcium Level 7.5 mg/dL (8.7-10.4) L Urinalysis Test 09/21/24 12:05 Urine Color Light-yellow (Yellow) Urine Clarity Clear (Clear) Urine pH 5.5 (5.0-9.0) Urine Specific [place] 1.018 (1.001-1.035) Urine Protein Trace (Negative) H Urine Ketones Negative (Negative) Urine Blood Negative /uL (Negative) Urine Nitrite Negative (Negative) Urine Bilirubin Negative (Negative) Urine Urobilinogen Normal mg/dL (Negative) Urine Leukocyte Esterase Negative /uL (Negative) Urine RBC 1 /hpf (0 - 4) Urine Microscopic WBC 16 /HPF (0-5) H Urine Squamous Epithelial Cells Few /hpf (<5) Urine Transitional Epithelial Cells Few /hpf (<2) Urine Bacteria None seen /hpf (None Seen) Urine Hyaline Casts Few /lpf (0 - 2) Urine Mucus Few (None Seen) Urine Glucose Normal mg/dL (Normal) Microbiology Microbiology Date/Time Source Procedure Growth Status 09/22/24 05:50 Nose MRSA Screen - Final Complete Assessment/Plan Assessment/Plan 73-year-old female initially admitted to the hospital with a intractable abdominal pain found to have 1. Intractable abdominal pain 2. Status post EGD with a acttlqan-as-jzstff oral candidiasis and thrush/candidal esophagitis 3. Peptic ulcer disease with gastric ulcers and large duodenal bulb ulcer 4. Urinary retention status post Erwin catheter placement 5. Anemia status post 1 unit of packed RBC, hemoglobin<7 -transfuse 1 unit of packed RBC, physical therapy evaluation and treatment, Protonix and Carafate as well as nystatin swish and swallow -discharge plan. Plan discussed with: Patient Date of Service: Sep 24, 2024 Billing Provider: LOC BETTENCOURT MD Common Visit Codes: NOT BILLABLE LOC BETTENCOURT MD Sep 24, 2024 16:19
[2024-09-24] MEDS: POTASSIUM EFFERVESENT TAB 25 MEQ PO SCH (22:28)
[2024-09-25] VITALS (8 sets, daily range): BP systolic 114–142; BP diastolic 43–59; PULSE 70–94; RESP 16–18; TEMP 37.2; O2SAT 92–96
[2024-09-25 02:45] LABS: Basophils # (auto) 0 10 ^3/uL (0-0.2); Eosinophils # (auto) 0.1 10 ^3/uL (0-0.8); Lymphocytes # (auto) 1.1 10 ^3/uL (0.4-5.4); Mean Corpuscular Hemoglobin 23.1 pg (28.0-32.0); Monocytes # (auto) 1.1 10 ^3/uL (0-1.3); Neutrophils # (auto) 8.2 10 ^3/uL (1.6-8.6); Platelet Count (auto) 414 10^3/uL (140-450); White Blood Cell 10.5 10^3/uL (4.4-10.8)
[2024-09-25 02:47] LABS: Basophils % (auto) 0.4 % (0.0-2.0); Eosinophils % (auto) 0.7 % (0.0-7.0); Hematocrit 24.2 % (36.0-46.0); Hemoglobin 7.8 g/dL (12.2-16.2); Lymphocytes % (auto) 10.5 % (10.0-50.0); Mean Corpuscular Hgb Conc. 32.4 g/dL (32.0-36.0); Mean Corpuscular Volume 71.5 fL (80.0-100.0); Monocytes % (auto) 10.1 % (0.0-12.0); Neutrophils % (auto) 78.3 % (37.0-80.0); Nucleated Red Blood Cells % 0.1 %; Red Blood Cells 3.38 10^6/uL (4.0-5.20); Red Cell Distribution Width 18.8 % (11.8-14.3)
[2024-09-25 12:32] LABS: Alanine Aminotransferase 19 U/L (7-40); Alkaline Phosphatase 70 U/L (46-116); Anion Gap 11 (5-15); Aspartate Aminotransferase 40 U/L (13-40); Blood Urea Nitrogen 9 mg/dL (9-23); Carbon Dioxide 20 mmol/L (20-31); Potassium 3.6 mmol/L (3.5-5.1); Sodium 142 mmol/L (136-145)
[2024-09-25 12:33] LABS: Albumin 3.5 g/dL (3.2-4.8)
[2024-09-25 12:37] LABS: Bilirubin, Total 0.2 mg/dL (0.2-1.0); Calcium 7.7 mg/dL (8.7-10.4); Chloride 111 mmol/L (98-107); Glucose 117 mg/dL (74-106)
[2024-09-25] MEDS ORDERED: PANT40TA2 PO (14:31)
[2024-09-25] MEDS ORDERED: NYS5LQ MT (14:31)
[2024-09-25] MEDS ORDERED: SUCR1SUS26 PO (14:31)
[2024-09-25] MEDS ORDERED: METO-6 PO (14:31)
--- NOTE | 2024-09-25 16:08 | DVHDS2 ---
Discharge Summary Date of Admission Sep 21, 2024 at 16:55 Date of Discharge: Sep 25, 2024 Labs/Diagnostic Data: Laboratory Results Test 09/25/24 13:23 09/25/24 11:37 09/25/24 02:28 09/23/24 12:30 POC Glucose 117 mg/dl (70-106) Sodium Level 142 mmol/L (136-145) Potassium Level 3.6 mmol/L (3.5-5.1) Chloride Level 111 mmol/L (98-107) Carbon Dioxide Level 20 mmol/L (20-31) Anion Gap 11 (5-15) Blood Urea Nitrogen 9 mg/dL (9-23) Creatinine 0.75 mg/dL (0.550-1.02) Glomerular Filtration Rate Calc 85 mL/min (>90) BUN/Creatinine Ratio 12.0 (10.0-20.0) Serum Glucose 117 mg/dL (74-106) Calcium Level 7.7 mg/dL (8.7-10.4) Total Bilirubin 0.2 mg/dL (0.2-1.0) Aspartate Amino Transferase (AST) 40 U/L (13-40) Alanine Aminotransferase (ALT) 19 U/L (7-40) Alkaline Phosphatase 70 U/L (46-116) Total Protein 6.0 g/dL (5.7-8.2) Albumin 3.5 g/dL (3.2-4.8) White Blood Count 10.5 10^3/uL (4.4-10.8) Red Blood Count 3.38 10^6/uL (4.0-5.20) Hemoglobin 7.8 g/dL (12.2-16.2) Hematocrit 24.2 % (36.0-46.0) Mean Corpuscular Volume 71.5 fL (80.0-100.0) Mean Corpuscular Hemoglobin 23.1 pg (28.0-32.0) Mean Corpuscular Hemoglobin Concent 32.4 g/dL (32.0-36.0) Red Cell Distribution Width 18.8 % (11.8-14.3) Platelet Count 414 10^3/uL (140-450) Mean Platelet Volume 7.2 fL (6.9-10.8) Neutrophils (%) (Auto) 78.3 % (37.0-80.0) Lymphocytes (%) (Auto) 10.5 % (10.0-50.0) Monocytes (%) (Auto) 10.1 % (0.0-12.0) Eosinophils (%) (Auto) 0.7 % (0.0-7.0) Basophils (%) (Auto) 0.4 % (0.0-2.0) Neutrophils # (Auto) 8.2 10 ^3/uL (1.6-8.6) Lymphocytes # (Auto) 1.1 10 ^3/uL (0.4-5.4) Monocytes # (Auto) 1.1 10 ^3/uL (0-1.3) Eosinophils # (Auto) 0.1 10 ^3/uL (0-0.8) Basophils # (Auto) 0 10 ^3/uL (0-0.2) Nucleated Red Blood Cells 0.1 % Stool Occult Blood Positive (Negative) Stool Occult Blood Sample #3 (Negative) Test 09/22/24 06:50 09/21/24 18:19 09/21/24 12:05 Differential Total Cells Counted 100.0 (100) Neutrophils % (Manual) 76 (37.0-80.0) Band Neutrophils % (Manual) 9 Lymphocytes % (Manual) 7 (10.0-50.0) Monocytes % (Manual) 8 (0-12) Eosinophils % (Manual) 0 (0-7) Basophils % (Manual) 0 (0.0-2.0) Metamyelocytes % (manual) 0 Myelocytes % (Manual) 0 Promyelocytes % (Manual) 0 Blast Cells % (Manual) 0 Reactive Lymphocytes 0 Platelet Estimate Increased Hypochromasia (manual) Moderate Microcytosis Slight Phosphorus Level 5.8 mg/dL (2.4-5.1) Magnesium Level 2.0 mg/dL (1.6-2.6) B-Type Natriuretic Peptide 43.71 pg/mL (0-100) Lipase 36 U/L (12-53) Vitamin D 25-Hydroxy 4.6 ng/mL (30.0-100) Parathyroid Hormone (Intact) 88.7 pg/mL (18.4-80.1) Hepatitis B Surface Antigen Negative (Negative) Hepatitis C Antibody Negative (Negative) Iron Level 13 ug/dL (50-170) Total Iron Binding Capacity 334 ug/dL (250-425) Percent Iron Saturation 3.9 % (15-50) Ferritin 18.8 ng/mL (10-291) Urine Color Light-yellow (Yellow) Urine Clarity Clear (Clear) Urine pH 5.5 (5.0-9.0) Urine Specific [place] 1.018 (1.001-1.035) Urine Protein Trace (Negative) Urine Ketones Negative (Negative) Urine Blood Negative /uL (Negative) Urine Nitrite Negative (Negative) Urine Bilirubin Negative (Negative) Urine Urobilinogen Normal mg/dL (Negative) Urine Leukocyte Esterase Negative /uL (Negative) Urine RBC 1 /hpf (0 - 4) Urine Microscopic WBC 16 /HPF (0-5) Urine Squamous Epithelial Cells Few /hpf (<5) Urine Transitional Epithelial Cells Few /hpf (<2) Urine Bacteria None seen /hpf (None Seen) Urine Hyaline Casts Few /lpf (0 - 2) Urine Mucus Few (None Seen) Urine Glucose Normal mg/dL (Normal) Other Laboratory Tests 09/25/24 11:37 09/25/24 02:28 Brief Hx & Hospital Course: 73-year-old female initially admitted to the hospital with a intractable abdominal pain . Patient was does have known history of peptic ulcer disease. Patient underwent status post EGD with rgibllxo-[id number] oral candidiasis and candidal esophagitis. Patient also has a large duodenal bulb ulcer. Patient was had a urinary retention status post Erwin catheter placement, status post catheter mode. Patient did have anemia, transfused 2 units of packed RBC. Patient currently stable to be discharged. Patient does have known history of peripheral arterial disease with a left AKA. Please resume Plavix with a one week. Patient was stable to be discharged. Condition at Discharge: Stable Final Diagnosis/Problems List 73-year-old female initially admitted to the hospital with a intractable abdominal pain found to have 1. Intractable abdominal pain 2. Status post EGD with a ayyhrakp-gv-vpuqoq oral candidiasis and thrush/candidal esophagitis 3. Peptic ulcer disease with gastric ulcers and large duodenal bulb ulcer 4. Urinary retention status post Erwin catheter placement 5. Anemia status post 1 unit of packed RBC, hemoglobin<7 Discharge Disposition: Home with Health Services SNF Discharge Will this Physician continue t: No Discharge Instruct/Medications Diet: Cardiac 2g Na,low cholest Activity: No Restrictions, As Tolerated Follow Up/Referral: Follow up with the PCP in one week Follow up with the GI in one week to follow up on the stomachbiopsy Medications: Protonix, Carafate, nystatin swish and swallow as prescribed Discharge Statement: "Patient was advised to return to the ER or call 911 if any headaches, dizziness, shortness of breath, chest pain, abdominal pain, bleeding, fevers, or worsening of medical condition. Patient was counseled about treatment plan, medications, possible side effects, patientverbalized understanding. All questions were answered to the best of my ability. This discharge took greater then 30 minutes in planning, reviewing documentation, counseling the patient, and discussing with other team members." ASSESSMENT ASSESSMENT Assessment 73-year-old female initially admitted to the hospital with a intractable abdominal pain found to have 1. Intractable abdominal pain 2. Status post EGD with a ewtrosfq-ie-emgjjs oral candidiasis and thrush/candidal esophagitis 3. Peptic ulcer disease with gastric ulcers and large duodenal bulb ulcer 4. Urinary retention status post Erwin catheter placement 5. Anemia status post 1 unit of packed RBC, hemoglobin<7 Date of Service: Sep 25, 2024 Billing Provider: LOC BETTENCOURT MD Common Visit Codes: NOT BILLABLE LOC BETTENCOURT MD Sep 25, 2024 16:08
[2024-09-25] MEDS ORDERED: PIPERACILLIN-TAZOB 3.375GM 100 ML IV SCH (22:00)
== END 2024-09-25 18:40 | disposition home health service (06) | DRG 380 ==
LOC: ER 12:38 → OVERFLOW 16:55 → WEST WING 16:59
PROVIDERS: ADMIT Hospitalist; ATTEND Hospitalist
PROC: 0DB68ZX Excision of Stomach, Via Natural or Artificial Opening Endoscopic, Diagnostic (ICD-10-PCS; 2024-09-23)
PROC: 0DB38ZX Excision of Lower Esophagus, Via Natural or Artificial Opening Endoscopic, Diagnostic (ICD-10-PCS; 2024-09-23)
PROC: 0DB18ZX Excision of Upper Esophagus, Via Natural or Artificial Opening Endoscopic, Diagnostic (ICD-10-PCS; 2024-09-23)
PROC: 0DB98ZX Excision of Duodenum, Via Natural or Artificial Opening Endoscopic, Diagnostic (ICD-10-PCS; principal; 2024-09-23 16:35)
PROC: 30233N1 Transfusion of Nonautologous Red Blood Cells into Peripheral Vein, Percutaneous Approach (ICD-10-PCS; 2024-09-24)
DX: K22.10 Ulcer of esophagus without bleeding (principal); N17.0 Acute kidney failure with tubular necrosis; R65.11 Systemic inflammatory response syndrome (SIRS) of non-infectious origin with acute organ dysfunction; B37.0 Candidal stomatitis; K56.7 Ileus, unspecified; B37.81 Candidal esophagitis; E87.20 Acidosis, unspecified; K25.9 Gastric ulcer, unspecified as acute or chronic, without hemorrhage or perforation; K29.80 Duodenitis without bleeding; K29.70 Gastritis, unspecified, without bleeding; K26.9 Duodenal ulcer, unspecified as acute or chronic, without hemorrhage or perforation; E87.5 Hyperkalemia; D50.9 Iron deficiency anemia, unspecified; R79.89 Other specified abnormal findings of blood chemistry; K44.9 Diaphragmatic hernia without obstruction or gangrene; I48.91 Unspecified atrial fibrillation; I25.10 Atherosclerotic heart disease of native coronary artery without angina pectoris; E11.51 Type 2 diabetes mellitus with diabetic peripheral angiopathy without gangrene; E78.5 Hyperlipidemia, unspecified; K57.30 Diverticulosis of large intestine without perforation or abscess without bleeding; I12.9 Hypertensive chronic kidney disease with stage 1 through stage 4 chronic kidney disease, or unspecified chronic kidney disease; N18.30 Chronic kidney disease, stage 3 unspecified; E11.22 Type 2 diabetes mellitus with diabetic chronic kidney disease; Z88.4 Allergy status to anesthetic agent; Z89.612 Acquired absence of left leg above knee; Z79.891 Long term (current) use of opiate analgesic; Z79.899 Other long term (current) drug therapy; Z79.82 Long term (current) use of aspirin; Z95.5 Presence of coronary angioplasty implant and graft; Z90.710 Acquired absence of both cervix and uterus; Z90.49 Acquired absence of other specified parts of digestive tract; Z87.891 Personal history of nicotine dependence; Z79.2 Long term (current) use of antibiotics; Z86.73 Personal history of transient ischemic attack (TIA), and cerebral infarction without residual deficits; Z79.84 Long term (current) use of oral hypoglycemic drugs; Z79.4 Long term (current) use of insulin; Z83.3 Family history of diabetes mellitus; Z82.49 Family history of ischemic heart disease and other diseases of the circulatory system; Z79.02 Long term (current) use of antithrombotics/antiplatelets; Z87.11 Personal history of peptic ulcer disease
CPT/HCPCS: 36415; 43239; 74176; 76775; 80048; 80053; 81001; 82270; 82306; 82728; 82962; 83540; 83550; 83690; 83735; 83880; 83970; 84100; 85007; 85025; 85027; 86803; 86850; 86900; 86901; 86920; 87081; 87340; 99291; G0378; J1815; J2250; J2405; J2470; J2543; J3490